=== PATIENT | male | born 1960 | race Caucasian/White ===

== ENCOUNTER 2017-11-09 10:14 | Inpatient (IN) ==
[2017-11-09] MEDS ORDERED: Albuterol 2.5 MG/3 ML NEBULIZER IH ONE (10:49)
[2017-11-09] MEDS ORDERED: Ipratropium/Albuterol Neb 3 ML IH ONE (10:49)
--- NOTE | 2017-11-09 11:09 | Emergency Department Note ---
Disposition Clinical Impression: Community acquired pneumonia Qualifiers: Laterality: left Lung location: lower lobe of lung Qualified Code(s): J18.1 - Lobar pneumonia, unspecified organism Disposition: Admitted As Inpatient Condition: Fair Time of Disposition: 13:21 Chest Pain HPI - General Chief Complaint: ED Chest Pain Stated Complaint: chest pain Time Seen by Provider: 11/09/17 10:28 Source: patient Mode of arrival: ambulatory Limitations: no limitations Vital Signs Reviewed: Yes Nursing Notes Reviewed: Yes - History of Present Illness HPI Narrative: 57-year-old male presented to the ED complaining of chest pain and shortness of breath. He states the chest pain has been going on for about a week. He does have history of having a heart catheter but there were no findings he also has a defibrillator that he said he felt went on for about 3 weeks ago multiple times. Has not gone off since. He says the chest pains about a 5 out of 10 pressure left-sided his chest nonradiating. He has not taken anything for the pain. Says it is constant and does get worse to 8/10 when he is just sitting there resting. He says he is more short of breath. He says he has had no fevers but does wake up with night sweats which is normal for him he is not complaining of any weight loss. He has not been on a long car rides, history of blood clots, recent surgeries. Patient states no nausea or vomiting no pain in the jaw or arms. He is having no abdominal pain, change in bowel movements pain with urination, headache, blurry vision, back pain, painting another legs or generalized weakness. Patient was has no complaints. Severity scale (1-10): 8 - Related Data Home Medications Medication Instructions Recorded Confirmed LevETIRAcetam [Keppra] 1,000 mg PO Q12H 12/01/15 11/09/17 Multivitamin [Flintstones] 1 tab PO DAILY 12/01/15 11/09/17 Potassium Chloride 20 meq PO DAILY 12/01/15 11/09/17 Albuterol Sulfate [Proair Hfa] 2 puff IH Q4H PRN 10/04/16 11/09/17 Budesonide/Formoterol 160/4.5 2 puff IH BIDR 10/04/16 11/09/17 [Symbicort 160/4.5] Metoprolol Succinate 100 mg PO DAILY 02/26/17 11/09/17 Citalopram Hydrobromide 10 mg PO DAILY 08/11/17 11/09/17 [Citalopram HBr] Tamsulosin [Flomax] 0.4 mg PO DAILY 08/11/17 11/09/17 Previous Rx's Medication Instructions Recorded Cefdinir [Omnicef] 300 mg PO BID 10 Days #20 capsule 11/01/17 Lisinopril [Zestril] 20 mg PO DAILY #30 tablet 11/01/17 Allergies Allergy/AdvReac Type Severity Reaction Status Date / Time codeine Allergy Rash Verified 11/09/17 10:25 morphine Allergy Rash Verified 11/09/17 10:25 Review of Systems: 10 point review of systems done and negative unless otherwise stated in history of present illness. All systems ED: reviewed and negative except as stated. Review of Systems: As Per HPI Chest Pain PMH - Past Medical History Medical history: Reports: CHF, COPD, hypertension, other Surgical history: Reports: herniorrhaphy, pacemaker/AICD, other Psychiatric history: Reports: depression - Social History Smoking Status: Former smoker Alcohol use: Reports: occasionally Drug use: Reports: marijuana Physical Exam - General Limitations: no limitations General appearance: alert, in no apparent distress - Head Head exam: atraumatic, normocephalic, normal inspection - Eye Eye exam: Present: normal appearance, PERRL, EOMI - ENT ENT exam: normal exam, normal oropharynx, mucous membranes moist - Neck Neck exam: Present: normal inspection, full ROM, trachea midline - Chest Chest inspection: Present: normal inspection, symmetric chest wall rise, tenderness (Patient is tender on the left side of his chest when you palpate near the axilla.) - Expanded Respiratory Exam Location: rhonchi: Right, Upper, Lower - Cardiovascular Cardiovascular exam: Present: regular rate, normal rhythm, normal heart sounds - Abdominal Exam Abdominal exam: Present: soft, Non-Tender, normal bowel sounds. Absent: tenderness, distention, guarding, rebound, rigidity - Extremities Exam Extremities exam: Present: normal inspection, full ROM. Absent: tenderness, pedal edema - Expanded Lower Extremity Exam Neurovascular/Tendon exam: Present: normal capillary refill. Absent: pulse deficit, motor deficit, sensory deficit, tendon deficit - Back Exam Back exam: Present: normal inspection, full ROM. Absent: tenderness, CVA tenderness (R), CVA tenderness (L) - Neurological Exam Neurological exam: Present: alert, oriented X3 - Skin Skin exam: Present: warm, dry, intact, normal color Course Course Narrative: 57-year-old male presents the ED with chest pain and shortness of breath. With the chest pain workup including CBC, BMP, troponin as well as chest x-ray. We will give patient a DuoNeb still with his shortness of breath. He was hypoxic while in the room at 90% while sitting there talking. Patient does not think this is normal for him. We will place him on oxygen. We will reassess patient after breathing treatments see how he feels and see if his lung sounds are better. Unknown disposition at this time. Vital Signs Temperature 98.4 F 11/09/17 10:22 Pulse Rate 86 11/09/17 10:22 Respiratory Rate 16 11/09/17 10:22 Blood Pressure 151/101 11/09/17 10:22 O2 Sat by Pulse Oximetry 93 11/09/17 10:22 Temperature 98.0 F 11/09/17 13:34 Pulse Rate 76 11/09/17 13:34 Respiratory Rate 18 11/09/17 16:36 Blood Pressure 148/100 11/09/17 13:34 O2 Sat by Pulse Oximetry 96 11/09/17 16:36 Oxygen Delivery Oxygen Delivery Room Air Chest Pain - [facility] Narrative Medical decision making narrative: 57-year-old male presents the ED complaining of chest pain and shortness of breath. Patient presented here he was hypoxic at 88% on room air. Did place him on 2 L of oxygen remained at 94%. The breathing treatment did help him breathe a lot better. Get chest x-ray which showed a left-sided pleural effusion. Labs did show leukocytosis with mild left shift. His troponin was normal EKG was normal. At this time he is most likely diagnosed with acquired pneumonia. We started him on azithromycin since third ceftriaxone also ordered blood cultures. Patient is admitted to the hospitalist service. I spoke with Dr. Lockett who agreed to admit the patient to their service. Patient is admitted in stable condition at this time. Chest X-Ray 11/09/17 10:33 IMPRESSION: 1. Left pleural effusion with underlying left basilar airspace opacity potentially representing atelectasis, pneumonia, and/or aspiration. 2. Pulmonary vascular congestion. D/ / Drew Payan MD / Drew Payan MD Interpreting Provider: Drew Payan MD - Medical Records Medical records reviewed: Yes I reviewed the patient's medical records. - Lab Data Lab results reviewed: Yes I reviewed the patient's lab results. Result diagrams: 11/09/17 10:55 11/09/17 10:55 Lab Results 11/09/17 11/09/17 11/09/17 Range/Units 10:55 10:55 10:55 WBC 13.5 H (4.3-11.1) K/mcL RBC 4.27 (4.19-5.50) M/mcL Hgb 14.2 (12.9-16.9) g/dL Hct 42.1 (37.5-50.1) % MCV 98.6 (83.0-100.0) fL MCH 33.3 (28.0-33.3) pg MCHC 33.7 (31.6-35.5) g/dL RDW 12.8 (11.5-14.5) % Plt Count 231 (140-400) K/mcL MPV 10.2 (9.4-12.4) fL Immature Gran % 0.3 (0-4) % Seg Neutrophils % 78.3 % Lymphocytes % 11.2 % Monocytes % 6.1 % Eosinophils % 3.4 % Basophils % 0.7 % Neutrophils # 10.6 H (1.6-8.9) K/mcL Lymphocytes # 1.5 (0.6-4.6) K/mcL Monocytes # 0.8 (0.0-1.3) K/mcL Eosinophils # 0.5 (0.0-0.6) K/mcL Basophils # 0.1 (0.0-0.2) K/mcL PT 10.8 (9.4-12.1) Seconds INR 1.0 APTT 27.8 (26.0-36.0) Seconds Sodium 140 (136-145) mEq/L Potassium 3.6 (3.5-4.5) mEq/L Chloride 103 (98-109) mEq/L Carbon Dioxide 29 (19-29) mEq/L BUN 9 (8-26) mg/dL Creatinine 0.85 (0.72-1.25) mg/dL Est GFR ( Amer) > 60 (> 60) Est GFR (Non-Af Amer) > 60 (> 60) BUN/Creatinine Ratio 11 (6-26) Glucose 96 (70-99) mg/dL Calculated Osmolality 289 (280-300) Lactic Acid (0.5-2.2) mmol/L Calcium 8.7 (8.6-10.8) mg/dL Troponin I (0-0.03) ng/mL 11/09/17 11/09/17 Range/Units 10:55 12:17 WBC (4.3-11.1) K/mcL RBC (4.19-5.50) M/mcL Hgb (12.9-16.9) g/dL Hct (37.5-50.1) % MCV (83.0-100.0) fL MCH (28.0-33.3) pg MCHC (31.6-35.5) g/dL RDW (11.5-14.5) % Plt Count (140-400) K/mcL MPV (9.4-12.4) fL Immature Gran % (0-4) % Seg Neutrophils % % Lymphocytes % % Monocytes % % Eosinophils % % Basophils % % Neutrophils # (1.6-8.9) K/mcL Lymphocytes # (0.6-4.6) K/mcL Monocytes # (0.0-1.3) K/mcL Eosinophils # (0.0-0.6) K/mcL Basophils # (0.0-0.2) K/mcL PT (9.4-12.1) Seconds INR APTT (26.0-36.0) Seconds Sodium (136-145) mEq/L Potassium (3.5-4.5) mEq/L Chloride (98-109) mEq/L Carbon Dioxide (19-29) mEq/L BUN (8-26) mg/dL Creatinine (0.72-1.25) mg/dL Est GFR ( Amer) (> 60) Est GFR (Non-Af Amer) (> 60) BUN/Creatinine Ratio (6-26) Glucose (70-99) mg/dL Calculated Osmolality (280-300) Lactic Acid 0.8 (0.5-2.2) mmol/L Calcium (8.6-10.8) mg/dL Troponin I 0.01 (0-0.03) ng/mL - Radiology Data Radiology results reviewed: Yes I reviewed the patient's radiology results. - EKG Data EKG attestation: Yes I reviewed and interpreted this EKG. EKG results narrative: EKG done at 1032 review by myself and attending shows normal sinus rhythm at a rate of 84, SD interval 143, QRS 94, QTC 416 with a normal axis. No signs of ST elevation, or ST changes, no signs of T-wave out of maladies, there is sign of left ventricular hypertrophy but no signs of strain, no signs of heart block , no signs of WPW/Brugada syndrome. This EKG is unchanged on old EKG done . Heart Score - Score History: Slightly Suspicious EKG: Normal Age: 45-65 Risk Factors: 1-2 risk factors Troponin: Less than normal limit HEART Score Total: 2 Attestation Statement - Attestation Attestation: I, Markus Perera, examined this patient and my medical decision-making was reviewed with the MAC DEVELOPER/PA/Advanced Practice Nurse/Resident Physician. I agree with the documented findings, disposition and treatment plan as described except to the extent set forth below. 57-year-old male presents emergency Department with concerns of increasing dyspnea on exertion and left-sided chest pain. Patient states symptoms have been worsening over the past week, are not associated with diaphoresis or palpitations, nausea, vomiting, diarrhea or abdominal pain. Chest x-ray shows a possible left sided pleural effusion versus pneumonia. Patient has mildly elevated white blood cell count. Patient states he has had subjective fevers over the past few days. Initial EKG showed normal sinus rhythm with a rate of 84. Patient satting 90% on room air in the emergency department. Patient will be started Ankney required antibiotics and admitted to the hospital for further care and evaluation of required pneumonia versus COPD exacerbation versus acute bronchitis
[2017-11-09 11:10] LABS: Basophils # 0.1 K/mcL (0.0-0.2); Basophils % 0.7 %; Eosinophils # 0.5 K/mcL (0.0-0.6); Eosinophils % 3.4 %; Hematocrit 42.1 % (37.5-50.1); Hemoglobin 14.2 g/dL (12.9-16.9); Immature Granulocytes % 0.3 % (0-4); Lymphocytes # 1.5 K/mcL (0.6-4.6); Lymphocytes % 11.2 %; Mean Corpuscular HGB Conc 33.7 g/dL (31.6-35.5); Mean Corpuscular Hemoglobin 33.3 pg (28.0-33.3); Mean Corpuscular Volume 98.6 fL (83.0-100.0); Mean Platelet Volume 10.2 fL (9.4-12.4); Monocytes # 0.8 K/mcL (0.0-1.3); Monocytes % 6.1 %; Neutrophils # 10.6 K/mcL (1.6-8.9); Platelet Count 231 K/mcL (140-400); Red Blood Count 4.27 M/mcL (4.19-5.50); Red Cell Distribution Width 12.8 % (11.5-14.5); Segmented Neutrophils % 78.3 %
[2017-11-09 11:15] LABS: Prothrombin Time 10.8 Seconds (9.4-12.1)
[2017-11-09 11:18] LABS: Activated Partial Thrombo Time 27.8 Seconds (26.0-36.0)
[2017-11-09 11:24] LABS: BUN/Creatinine Ratio 11 (6-26); Blood Urea Nitrogen 9 mg/dL (8-26); Calcium 8.7 mg/dL (8.6-10.8); Carbon Dioxide 29 mEq/L (19-29); Chloride 103 mEq/L (98-109); Glucose 96 mg/dL (70-99); Osmolality,Calculated 289 (280-300); Potassium 3.6 mEq/L (3.5-4.5); Sodium 140 mEq/L (136-145); eGFR For African Americans > 60 (> 60); eGFR For Non-African Americans > 60 (> 60)
[2017-11-09] MEDS ORDERED: cefTRIAXone 1,000 MG in Water for inj. (sterile) 10 ML IVP ONE (11:52)
[2017-11-09] MEDS ORDERED: Azithromycin 500 MG in D5% in Water 250 ML IVPB ONE (11:52)
[2017-11-09] MEDS ORDERED: Naloxone 0.4 MG/ML INJ IVP PRN (14:04)
[2017-11-09] MEDS ORDERED: Acetaminophen 325 MG TABLET PO PRN (14:04)
[2017-11-09] MEDS ORDERED: Albuterol 2.5 MG/3 ML NEBULIZER IH PRN (14:08)
--- NOTE | 2017-11-09 14:11 | Internal Med History&Physical ---
<Silvia Jimenez - Last Filed: 11/09/17 14:11> Date of Encounter: 11/09/17 Time of Encounter: 14:11 Internal Medicine - H&P: HPI Chief complaint: CP Admitted From: Emergency Dept Plans for Post Hospital Care: Home History of present illness: Mr. Ward is a 57 year old male HPI Narrative: 57-year-old male presented to the ED complaining of chest pain and shortness of breath. He states the chest pain has been going on for about a week. He does have history of having a heart catheter but there were no findings he also has a defibrillator that he said he felt went on for about 3 weeks ago multiple times. Has not gone off since. He says the chest pains about a 5 out of 10 pressure left-sided his chest nonradiating. He has not taken anything for the pain. Says it is constant and does get worse to 8/10 when he is just sitting there resting. He says he is more short of breath. He says he has had no fevers but does wake up with night sweats which is normal for him he is not complaining of any weight loss. He has not been on a long car rides, history of blood clots, recent surgeries. Patient states no nausea or vomiting no pain in the jaw or arms. He is having no abdominal pain, change in bowel movements pain with urination, headache, blurry vision, back pain, painting another legs or generalized weakness. Patient was has no complaints. Severity scale (1-10): 8 Past Med Surg Social Fam HX - Past Medical History Medical history: CHF, COPD, hypertension, other Psychiatric history: depression - Past Surgical History Surgical History: herniorrhaphy, pacemaker/AICD, other - Social History Smoking Status: Former smoker Smokeless Tobacco Status: No Alcohol use: occasionally Drug use: marijuana Internal Medicine - H&P: Meds LevETIRAcetam [Keppra] 1,000 mg PO Q12H 12/01/15 [History] Multivitamin [Flintstones] 1 tab PO DAILY 12/01/15 [History] Potassium Chloride 20 meq PO DAILY 12/01/15 [History] Albuterol Sulfate [Proair Hfa] 2 puff IH Q4H PRN 10/04/16 [History] Budesonide/Formoterol 160/4.5 [Symbicort 160/4.5] 2 puff IH BIDR 10/04/16 [ History] Metoprolol Succinate 100 mg PO DAILY 02/26/17 [History] Citalopram Hydrobromide [Citalopram HBr] 10 mg PO DAILY 08/11/17 [History] Tamsulosin [Flomax] 0.4 mg PO DAILY 08/11/17 [History] Cefdinir [Omnicef] 300 mg PO BID 10 Days #20 capsule 11/01/17 [Rx] Lisinopril [Zestril] 20 mg PO DAILY #30 tablet 11/01/17 [Rx] 3 Allergy/AdvReac Type Severity Reaction Status Date / Time codeine Allergy Rash Verified 11/09/17 10:25 morphine Allergy Rash Verified 11/09/17 10:25 All Systems PM: A 10-system review of systems was performed and is negative for pertinent findings except as documented above in the HPI. - Constitutional Vitals: Temp Pulse Resp BP Pulse Ox 98.0 F 76 16 148/100 94 11/09/17 13:34 11/09/17 13:34 11/09/17 13:34 11/09/17 13:34 11/09/17 13:34 Internal Med - H&P Results - Labs CBC & Chem 7: 11/09/17 10:55 11/09/17 10:55 <Emeka Stovall - Last Filed: 11/09/17 15:28> Date of Encounter: 11/09/17 Internal Medicine - H&P: HPI Chief complaint: Chest pain Admitted From: Emergency Dept Plans for Post Hospital Care: Home History of present illness: Mr. Ward is a 57 year old male All Systems PM: A 10-system review of systems was performed and is negative for pertinent findings except as documented above in the HPI. - Constitutional Vitals: Temp Pulse Resp BP Pulse Ox 98.0 F 76 16 148/100 94 11/09/17 13:34 11/09/17 13:34 11/09/17 13:34 11/09/17 13:34 11/09/17 13:34 Internal Med - H&P Results - Labs CBC & Chem 7: 11/09/17 10:55 11/09/17 10:55
--- NOTE | 2017-11-09 15:33 | Internal Med History&Physical ---
Date of Encounter: 11/09/17 Time of Encounter: 15:29 Assessment and Plan (1) Pleural effusion, left Current visit: Yes Status: Acute Left pleural effusion secondary to CHF exacerbation and also possibly parapneumonic effusion. We will treat CHF with IV Lasix. Treat pneumonia with antibiotics. (2) Alcohol abuse Current visit: Yes Status: Acute CIWA protocol. Alcohol withdrawal precautions. (3) COPD (chronic obstructive pulmonary disease) Current visit: Yes Status: Acute No evidence of exacerbation. There is mild wheezing. Good air movement. He just completed a course of steroids. Continue Symbicort and add inhaled bronchodilators. No need for systemic steroids right now. Qualifiers: COPD type: emphysema Emphysema type: centrilobular Qualified Code(s): J43.2 - Centrilobular emphysema (4) Acute on chronic combined systolic and diastolic congestive heart failure Current visit: Yes Status: Acute Chest x-ray shows vascular congestion and a left-sided pleural effusion consistent with CHF exacerbation. Ejection fraction and 2016 was 20%. We will treat him with IV Lasix. Fluid restriction. Strict I's and O's. Daily weights. Repeat echocardiogram. (5) Essential hypertension Current visit: Yes Status: Acute Continue on lisinopril and metoprolol. (6) DVT prophylaxis Current visit: Yes Status: Acute Subcutaneous Lovenox. (7) Community acquired pneumonia Current visit: Yes Status: Acute Patient completed a course of Omnicef. He was given ceftriaxone and azithromycin in the main emergency department. Given that his symptoms persisted in spite of treatment with a cephalosporin I will switch treatment to Zosyn and Levaquin. We will obtain a CT of the chest to evaluate the underlying infiltrate present on the chest x-ray and evaluate for possible indication of aspiration such as endobronchial debris. Qualifiers: Laterality: left Lung location: lower lobe of lung Qualified Code(s): J18.1 - Lobar pneumonia, unspecified organism (8) NICM (nonischemic cardiomyopathy) Current visit: No Status: Acute (9) Chest pain Current visit: Yes Status: Acute Likely secondary to left lower lobe pneumonia and pleural effusion. Could also be secondary to PE. I we will obtain a CT angiogram of the chest ruled out PE. Qualifiers: Chest pain type: chest pain on breathing Qualified Code(s): R07.1 - Chest pain on breathing; R07.81 - Pleurodynia Internal Medicine - H&P: HPI Chief complaint: Chest pain Admitted From: Emergency Dept Plans for Post Hospital Care: Home History of present illness: Mr. Ward is a 57 year old male with past medical history significant for nonischemic cardiomyopathy, systolic heart failure with ejection fraction of 20% , status post AICD placement, COPD, seizure disorder and osteoarthritis who presents to the hospital for evaluation of chest pain. He started having chest pain and shortness of breath 8 days ago. He presented to urgent care and received treatment with antibiotic and steroids. His shortness of breath and productive cough have improved however his pain has been getting worse. He describes left-sided chest pain pressure-like 8/10 in intensity worse with cough and deep breathing. Denies associated nausea or lightheadedness and diaphoresis. A chest x-ray done in the emergency department revealed a left-sided pleural effusion and possible underlying infiltrate. He was given ceftriaxone and azithromycin. Review of systems positive for chest pain as above, chronic back pain, chronic depression and anxiety, history of seizures. The remainder of a 10 point review of systems was negative. Surgical history: Back surgery. Social history: Former smoker, quit 3 years ago, drinks 2-6 beers daily, reports withdrawal symptoms when he tries to refrain from drinking alcohol. Smokes marijuana but denies intravenous drug use. Family history: Patient's mother suffered with diabetes, heart disease and breast cancer. Past Med Surg Social Fam HX - Past Medical History Medical history: CHF, COPD, hypertension, other Psychiatric history: depression - Past Surgical History Surgical History: herniorrhaphy, pacemaker/AICD, other - Social History Smoking Status: Former smoker Smokeless Tobacco Status: No Alcohol use: occasionally Drug use: marijuana Internal Medicine - H&P: Meds LevETIRAcetam [Keppra] 1,000 mg PO Q12H 12/01/15 [History] Multivitamin [Flintstones] 1 tab PO DAILY 12/01/15 [History] Potassium Chloride 20 meq PO DAILY 12/01/15 [History] Albuterol Sulfate [Proair Hfa] 2 puff IH Q4H PRN 10/04/16 [History] Budesonide/Formoterol 160/4.5 [Symbicort 160/4.5] 2 puff IH BIDR 10/04/16 [ History] Metoprolol Succinate 100 mg PO DAILY 02/26/17 [History] Citalopram Hydrobromide [Citalopram HBr] 10 mg PO DAILY 08/11/17 [History] Tamsulosin [Flomax] 0.4 mg PO DAILY 08/11/17 [History] Cefdinir [Omnicef] 300 mg PO BID 10 Days #20 capsule 11/01/17 [Rx] Lisinopril [Zestril] 20 mg PO DAILY #30 tablet 11/01/17 [Rx] 3 Allergy/AdvReac Type Severity Reaction Status Date / Time codeine Allergy Rash Verified 11/09/17 10:25 morphine Allergy Rash Verified 11/09/17 10:25 All Systems PM: A 10-system review of systems was performed and is negative for pertinent findings except as documented above in the HPI. - Constitutional Vitals: Temp Pulse Resp BP Pulse Ox 98.0 F 76 16 148/100 94 11/09/17 13:34 11/09/17 13:34 11/09/17 13:34 11/09/17 13:34 11/09/17 13:34 General appearance: Present: A&O X 3, no acute distress - Eye Eye exam: Present: PERRL, conjuntiva pink, sclera anicteric Pupils: Present: PERRL - Neck Neck exam general surgery: Present: supple, trachea midline. Absent: lymphadenopathy - Respiratory Respiratory exam: Present: decreased breath sounds (Decreased breath sounds at the left base), CTAB, wheezes (Fine expiratory wheezes). Absent: accessory muscle use, rales, rhonchi - Cardiovascular Cardiovascular exam: Present: RRR, +S1, +S2. Absent: diastolic murmur, gallop, rubs, systolic murmur - GI/Abdominal GI/Abdominal exam: Present: normal bowel sounds, soft, no peritoneal signs. Absent: distended, tenderness - Extremities Exam Extremities exam: Present: warm, radial pulses palpable and symmetrical. Absent : calf tenderness, cyanotic, pedal edema - Neurological Exam Neurological exam: Present: CN II-XII intact, oriented X3, no focal deficits. Absent: pronater drift, facial droop, speech deficit - Skin Skin exam: Present: dry, intact Internal Med - H&P Results - Labs CBC & Chem 7: 11/09/17 10:55 11/09/17 10:55 - EKG Data -: EKG Interpreted by Myself EKG shows normal: sinus rhythm, axis, intervals, ST-T waves Rate: normal - Impressions Echocardiogram from June 2016 reviewed in the chart shows LV systolic dysfunction with ejection fraction of 20-25% and mild LV diastolic dysfunction.
[2017-11-09] MEDS: Ipratropium/Albuterol Neb 3 ML IH SCH ×4 (15:41→22:27)
[2017-11-09] MEDS ORDERED: *HR* LORazepam 2 MG/ML VIAL IVP PRN (15:51)
[2017-11-09] MEDS: levETIRAcetam 250 MG TABLET PO SCH (16:59)
[2017-11-09] MEDS: Piperacillin/Tazobactam 3.375 GM/200 ML BAG IVPB SCH (16:59)
[2017-11-09] MEDS: levoFLOXacin 750 MG TABLET PO SCH (17:00)
[2017-11-09] MEDS: Furosemide 20 MG/2 ML VIAL IVP SCH (17:00)
[2017-11-09] MEDS: Metoprolol XL (24 HR) Succ 50 MG TAB.ER.24H PO SCH (17:00)
[2017-11-09] MEDS ORDERED: Thiamine (B-1) 100 MG, Folic Acid 1 MG, MVI, adult with vitamin K 10 ML in 0.9 % Sodi... IVPB SCH (18:00)
[2017-11-09] MEDS: Budesonide/Formoterol 160/4.5 MDI IH SCH (22:28)
[2017-11-10] MEDS: Piperacillin/Tazobactam 3.375 GM/200 ML BAG IVPB SCH ×3 (00:29→15:29)
[2017-11-10] MEDS: Ipratropium/Albuterol Neb 3 ML IH SCH ×8 (03:31→22:04)
[2017-11-10] MEDS: *HR* Enoxaparin 40 MG/0.4 ML SYRINGE SQ SCH (05:08)
[2017-11-10] MEDS: levETIRAcetam 250 MG TABLET PO SCH ×2 (05:08→15:29)
[2017-11-10 06:19] LABS: Basophils # 0.1 K/mcL (0.0-0.2); Basophils % 0.9 %; Eosinophils # 0.5 K/mcL (0.0-0.6); Eosinophils % 3.9 %; Hematocrit 41.4 % (37.5-50.1); Hemoglobin 13.9 g/dL (12.9-16.9); Immature Granulocytes % 0.3 % (0-4); Lymphocytes # 1.3 K/mcL (0.6-4.6); Lymphocytes % 10.8 %; Mean Corpuscular HGB Conc 33.6 g/dL (31.6-35.5); Mean Corpuscular Hemoglobin 33.2 pg (28.0-33.3); Mean Corpuscular Volume 98.8 fL (83.0-100.0); Mean Platelet Volume 10.4 fL (9.4-12.4); Monocytes # 0.9 K/mcL (0.0-1.3); Monocytes % 7.3 %; Neutrophils # 9.6 K/mcL (1.6-8.9); Platelet Count 213 K/mcL (140-400); Red Blood Count 4.19 M/mcL (4.19-5.50); Segmented Neutrophils % 76.8 %
[2017-11-10 06:25] LABS: BUN/Creatinine Ratio 10 (6-26); Blood Urea Nitrogen 8 mg/dL (8-26); Calcium 8.4 mg/dL (8.6-10.8); Carbon Dioxide 30 mEq/L (19-29); Chloride 100 mEq/L (98-109); Chol/HDL Ratio 3.5 (0-4.9); Cholesterol 139 mg/dL (< 200); Glucose 112 mg/dL (70-99); HDL Cholesterol 40 mg/dL (40-59); LDL Cholesterol,Calculated 79 mg/dL (0-99); Magnesium 1.5 mg/dL (1.6-2.6); Osmolality,Calculated 285 (280-300); Potassium 3.4 mEq/L (3.5-4.5); Sodium 138 mEq/L (136-145); Triglycerides 102 mg/dL (< 150); eGFR For African Americans > 60 (> 60); eGFR For Non-African Americans > 60 (> 60)
[2017-11-10] MEDS: cefTRIAXone 1,000 MG in Water for inj. (sterile) 10 ML IVP SCH ×2 (08:08→08:13)
[2017-11-10] MEDS: levoFLOXacin 750 MG TABLET PO SCH (08:09)
[2017-11-10] MEDS: Metoprolol XL (24 HR) Succ 50 MG TAB.ER.24H PO SCH (08:09)
[2017-11-10] MEDS: Lisinopril 20 MG TABLET PO SCH (08:10)
[2017-11-10] MEDS: Furosemide 20 MG/2 ML VIAL IVP SCH ×2 (08:10→17:22)
[2017-11-10] MEDS ORDERED: Azithromycin 500 MG in D5% in Water 250 ML IVPB SCH ×2 (09:00→12:00)
[2017-11-10] MEDS: Budesonide/Formoterol 160/4.5 MDI IH SCH ×2 (10:18→22:03)
[2017-11-10] MEDS: Beer can PO SCH ×2 (12:31→17:22)
--- NOTE | 2017-11-10 13:46 | Internal Med Progress Note ---
Date of Encounter: 11/10/17 Time of Encounter: 10:00 - Assessment and plan (1) Pleural effusion, left Current Visit: Yes Status: Acute Assessment and plan: Likely secondary to CHF versus pleurisy versus parapneumonic effusion. Continue with Lasix. Patient clinically improving therefore a diagnostic thoracentesis likely not useful at this point. (2) Alcohol abuse Current Visit: Yes Status: Acute Assessment and plan: CIWA protocol. One beer with meals twice a day when necessary. (3) COPD (chronic obstructive pulmonary disease) Current Visit: Yes Status: Acute Assessment and plan: Inhaled bronchodilators. No evidence of exacerbation. Qualifiers: COPD type: emphysema Emphysema type: centrilobular Qualified Code(s): J43.2 - Centrilobular emphysema (4) Acute on chronic combined systolic and diastolic congestive heart failure Current Visit: Yes Status: Acute Assessment and plan: IV Lasix. Daily weights. Strict I's and O's. Fluid restriction. Repeat echocardiogram. (5) Essential hypertension Current Visit: Yes Status: Acute (6) DVT prophylaxis Current Visit: Yes Status: Acute (7) Community acquired pneumonia Current Visit: Yes Status: Acute Qualifiers: Laterality: left Lung location: lower lobe of lung Qualified Code(s): J18.1 - Lobar pneumonia, unspecified organism (8) NICM (nonischemic cardiomyopathy) Current Visit: No Status: Acute (9) Chest pain Current Visit: Yes Status: Acute Qualifiers: Chest pain type: chest pain on breathing Qualified Code(s): R07.1 - Chest pain on breathing; R07.81 - Pleurodynia - Subjective Interval history: Patient reports improvement in his left-sided chest pain over the last 24 hours which she describes as dull, pressure-like, mild, worse with inspiration and cough. - Constitutional Vitals: Temp Pulse Resp BP Pulse Ox 98.1 F 92 18 145/100 92 11/10/17 11:21 11/10/17 11:21 11/10/17 11:21 11/10/17 11:21 11/10/17 11:21 General appearance: Present: A&O X 3, no acute distress - Respiratory Respiratory exam: Present: decreased breath sounds (Decreased breath sounds at the right base and fine crackles), CTAB. Absent: accessory muscle use, rales, rhonchi, wheezes - Cardiovascular Cardiovascular exam: Present: RRR, +S1, +S2. Absent: diastolic murmur, gallop, rubs, systolic murmur - GI/Abdominal GI/Abdominal exam: Present: normal bowel sounds, soft, no peritoneal signs. Absent: distended, tenderness - Extremities Exam Extremities exam: Present: warm, radial pulses palpable and symmetrical. Absent : calf tenderness, cyanotic, pedal edema - Skin Skin exam: Present: dry, intact Internal Medicine: Result - Labs CBC & Chem 7: 11/10/17 05:42 11/10/17 05:42 Labs: Short CBC 11/10/17 Range/Units 05:42 WBC 12.5 H (4.3-11.1) K/mcL Hgb 13.9 (12.9-16.9) g/dL Hct 41.4 (37.5-50.1) % Plt Count 213 (140-400) K/mcL Neutrophils # 9.6 H (1.6-8.9) K/mcL BMP 11/10/17 05:42 Sodium 138 Potassium 3.4 L Chloride 100 Carbon Dioxide 30 H BUN 8 Creatinine 0.82 Glucose 112 H Calcium 8.4 L Cardiac Enzymes 11/09/17 11/09/17 Range/Units 16:32 22:23 Troponin I 0.00 0.00 (0-0.03) ng/mL - ABG Interpretation ABG results: PT/INR, D-dimer PT 10.8 Seconds (9.4-12.1) 11/09/17 10:55 - Impressions Impressions Chest CTA 11/09/17 15:27 IMPRESSION: 1. No pulmonary embolism. 2. Moderate left-sided pleural effusion with compressive atelectasis in the left lower lobe. 3. Areas of fibrosis in the lingula and right lower lobe are additionally identified. D/ / Pritesh Pete / Pritesh Pete Interpreting Provider: Pritesh Pete Consult Discharge Plan - Plan Referrals: NONE,PCP [Primary Care Provider] -
[2017-11-10] MEDS: Potassium Chloride Elixir 20 MEQ/15 ML UDC PO SCH ×2 (14:14→20:06)
[2017-11-10] MEDS ORDERED: Beer can PO SCH (17:00)
[2017-11-10] MEDS ORDERED: Thiamine (B-1) 100 MG, Folic Acid 1 MG, MVI, adult with vitamin K 10 ML in 0.9 % Sodi... IVPB SCH (20:00)
[2017-11-11] MEDS: Piperacillin/Tazobactam 3.375 GM/200 ML BAG IVPB SCH ×3 (01:51→11:02)
[2017-11-11] MEDS: levETIRAcetam 250 MG TABLET PO SCH (03:39)
[2017-11-11] MEDS: Ipratropium/Albuterol Neb 3 ML IH SCH ×3 (03:40→10:01)
[2017-11-11] MEDS: *HR* Enoxaparin 40 MG/0.4 ML SYRINGE SQ SCH (05:59)
[2017-11-11 06:05] LABS: Basophils # 0.1 K/mcL (0.0-0.2); Basophils % 0.7 %; Eosinophils # 0.4 K/mcL (0.0-0.6); Eosinophils % 3.4 %; Hematocrit 39.5 % (37.5-50.1); Hemoglobin 13.2 g/dL (12.9-16.9); Immature Granulocytes % 0.2 % (0-4); Lymphocytes # 1.3 K/mcL (0.6-4.6); Lymphocytes % 12.2 %; Mean Corpuscular HGB Conc 33.4 g/dL (31.6-35.5); Mean Corpuscular Volume 98.8 fL (83.0-100.0); Mean Platelet Volume 10.8 fL (9.4-12.4); Monocytes % 9.6 %; Neutrophils # 7.9 K/mcL (1.6-8.9); Platelet Count 199 K/mcL (140-400); Segmented Neutrophils % 73.9 %
[2017-11-11 06:16] LABS: BUN/Creatinine Ratio 13 (6-26); Blood Urea Nitrogen 11 mg/dL (8-26); Calcium 8.1 mg/dL (8.6-10.8); Carbon Dioxide 28 mEq/L (19-29); Chloride 100 mEq/L (98-109); Glucose 135 mg/dL (70-99); Osmolality,Calculated 283 (280-300); Potassium 3.4 mEq/L (3.5-4.5); Sodium 136 mEq/L (136-145); eGFR For African Americans > 60 (> 60); eGFR For Non-African Americans > 60 (> 60)
[2017-11-11] MEDS ORDERED: *HR* LORazepam 2 MG/ML VIAL IVP PRN (07:58)
[2017-11-11] MEDS: Potassium Chloride Elixir 20 MEQ/15 ML UDC PO SCH (08:05)
[2017-11-11] MEDS: Lisinopril 20 MG TABLET PO SCH (08:06)
[2017-11-11] MEDS: Metoprolol XL (24 HR) Succ 50 MG TAB.ER.24H PO SCH (08:06)
[2017-11-11] MEDS: Furosemide 20 MG/2 ML VIAL IVP SCH (08:07)
[2017-11-11] MEDS: levoFLOXacin 750 MG TABLET PO SCH (08:07)
[2017-11-11] MEDS: Beer can PO SCH ×2 (08:22→11:02)
[2017-11-11] MEDS: Budesonide/Formoterol 160/4.5 MDI IH SCH (10:01)
[2017-11-11 11:53] VITALS: BP 145/100
--- NOTE | 2017-11-11 11:56 | Discharge Summary ---
Date of Encounter: 11/11/17 Time of Encounter: 10:00 - Discharge Diagnosis (1) Pleural effusion, left Priority: Secondary Status: Acute (2) Alcohol abuse Priority: Secondary Status: Acute (3) COPD (chronic obstructive pulmonary disease) Priority: Secondary Status: Acute Qualifiers: COPD type: emphysema Emphysema type: centrilobular Qualified Code(s): J43.2 - Centrilobular emphysema (4) Acute on chronic combined systolic and diastolic congestive heart failure Priority: Primary Status: Acute (5) Essential hypertension Priority: Secondary Status: Acute (6) DVT prophylaxis Priority: Secondary Status: Acute (7) Community acquired pneumonia Priority: Secondary Status: Acute Qualifiers: Laterality: left Lung location: lower lobe of lung Qualified Code(s): J18.1 - Lobar pneumonia, unspecified organism (8) NICM (nonischemic cardiomyopathy) Priority: Secondary Status: Acute (9) Chest pain Priority: Secondary Status: Acute Qualifiers: Chest pain type: chest pain on breathing Qualified Code(s): R07.1 - Chest pain on breathing; R07.81 - Pleurodynia - Discharge Medications Prescriptions: Furosemide [Lasix] 20 mg PO DAILY #30 tablet Ipratropium/Albuterol Sulfate [Combivent Respimat Inhal [place]] 4 gm IH TID #1 aer.w.adap levoFLOXacin [Levaquin] 750 mg PO DAILY #4 tablet Home Medications: LevETIRAcetam [Keppra] 1,000 mg PO Q12H 12/01/15 [History] Multivitamin [Flintstones] 1 tab PO DAILY 12/01/15 [History] Potassium Chloride 20 meq PO DAILY 12/01/15 [History] Albuterol Sulfate [Proair Hfa] 2 puff IH Q4H PRN 10/04/16 [History] Budesonide/Formoterol 160/4.5 [Symbicort 160/4.5] 2 puff IH BIDR 10/04/16 [ History] Metoprolol Succinate 100 mg PO DAILY 02/26/17 [History] Citalopram Hydrobromide [Citalopram HBr] 10 mg PO DAILY 08/11/17 [History] Tamsulosin [Flomax] 0.4 mg PO DAILY 08/11/17 [History] Lisinopril [Zestril] 20 mg PO DAILY #30 tablet 11/01/17 [Rx] Furosemide [Lasix] 20 mg PO DAILY #30 tablet 11/11/17 [Rx] Ipratropium/Albuterol Sulfate [Combivent Respimat Inhal [place]] 4 gm IH TID #1 aer.w.adap 11/11/17 [Rx] levoFLOXacin [Levaquin] 750 mg PO DAILY #4 tablet 11/11/17 [Rx] Allergies/Adverse Reactions: 3 Allergy/AdvReac Type Severity Reaction Status Date / Time codeine Allergy Rash Verified 11/09/17 10:25 morphine Allergy Rash Verified 11/09/17 10:25 Procedures/tests Complete & Pending: Procedures Performed prior 72 hours Category Date Time Status CT angio chest [CT] Stat Cat Scan 11/09/17 15:27 Completed EV echocardiogram Routine Y 11/11/17 13:50 Completed Date of admission: 11/09/17 14:04 Primary care physician: PCP NONE Consults: 11/11/17 11:08 Consult to Warehouse And Receiving Supervisor [CONS] Routine Reason for SW Consult: lives in a camper with no running water - Patient Status Disposition: Home, Self-Care Condition: Fair Functional capacity at discharge: independent ambulation Overall status at discharge: patient is progressing back to baseline - Discharge Instructions Instructions: Furosemide (By mouth), Levofloxacin (By mouth) Follow Up With: Minor Damon DO [Resident] - 12/16/17 2:00 pm (Please follow up as schedule...) - Diet and Activity Activity: increase activity as tolerated Diet: low fat, low cholesterol Hospital course: Hospital presentation: Mr. Ward is a 57 year old male with past medical history significant for nonischemic cardiomyopathy, systolic heart failure with ejection fraction of 20% , status post AICD placement, COPD, seizure disorder and osteoarthritis who presents to the hospital for evaluation of chest pain. He started having chest pain and shortness of breath 8 days ago. He presented to urgent care and received treatment with antibiotic and steroids. His shortness of breath and productive cough have improved however his pain has been getting worse. He describes left-sided chest pain pressure-like 8/10 in intensity worse with cough and deep breathing. Hospital course: He was admitted and placed on telemetry. Serial troponins were negative. He was treated with Zosyn and Levaquin for suspected pneumonia. He was treated with Lasix for CHF exacerbation. His chest pain has improved. He was weaned off oxygen. His ambulatory oxygen saturation remained above 92 % on room air. He had a good response to diuretics. He had a repeat echocardiogram which showed ejection fraction of 50% which had improved significantly from previous echocardiogram. He will be transitioned to oral Lasix and switched to oral antibiotics and discharged home. I discussed the discharge plan with the patient and he expresses agreement with the plan. - Time Spent with Patient Total time spent providing and/or coordinating discharge services: Greater than 30 minutes - Constitutional Vitals: Temp Pulse Resp BP Pulse Ox 98.3 F 98 18 145/100 93 11/11/17 11:50 11/11/17 11:50 11/11/17 11:50 11/11/17 11:50 11/11/17 11:50 General appearance: Present: A&O X 3, no acute distress - Respiratory Respiratory exam: Present: CTAB. Absent: accessory muscle use, rales, rhonchi, wheezes - Cardiovascular Cardiovascular exam: Present: RRR, +S1, +S2. Absent: diastolic murmur, gallop, rubs, systolic murmur - GI/Abdominal GI/Abdominal exam: Present: normal bowel sounds, soft, no peritoneal signs. Absent: distended, tenderness
--- NOTE | 2017-11-11 14:44 | Electrocardiograph Report ---
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
--- NOTE | 2017-11-11 16:00 | Electrocardiograph Report ---
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
== END 2017-11-11 13:20 | disposition home or self-care (01) | DRG 291 ==
LOC: EMEROO 10:14 → 2ANU 10:14
PROVIDERS: ADMIT Hospitalist; ATTEND Internal Medicine

== ENCOUNTER 2021-03-31 10:37 | Inpatient (IN) ==
[2021-03-31] MEDS ORDERED: Naloxone 0.4 MG/ML INJ IVP PRN (13:26)
[2021-03-31] MEDS ORDERED: Ondansetron ODT 4 MG TAB.RAPDIS SL PRN (13:26)
[2021-03-31] MEDS: Piperacillin/Tazobactam 3.375 GM in 0.9 % Sodium Chloride Mini Bag 100 ML IVPB SCH ×2 (14:17→22:51)
[2021-03-31] MEDS: Furosemide 20 MG/2 ML VIAL IVP SCH ×2 (15:29→21:14)
[2021-03-31] MEDS ORDERED: levETIRAcetam 250 MG TABLET PO SCH (15:45)
[2021-03-31] MEDS: Ipratropium/Albuterol Neb 3 ML IH SCH ×3 (16:25→23:51)
[2021-03-31] MEDS: *HR* Heparin 5,000 UNIT/ML VIAL SQ SCH (16:31)
[2021-03-31] MEDS: MethylPREDNISolone 40 MG/ML VIAL IVP SCH (16:31)
[2021-03-31 17:33] LABS: Amphetamine Screen,Urine Positive ng/mL (Cutoff=1000); Barbiturate Screen,Urine Negative ng/mL (Cutoff=200); Benzodiazepines Screen,Urine Negative ng/mL (Cutoff=200); Cannabinoid Screen,Urine Positive ng/mL (Cutoff = 50); Cocaine Screen,Urine Negative ng/mL (Cutoff= 300); Opiate Screen,Urine Negative ng/mL (Cutoff=300); Phencyclidine Screen,Urine Negative ng/mL (Cutoff=25)
[2021-03-31] MEDS: Budesonide/Formoterol 160/4.5 1 PUFF INH IH SCH ×2 (20:27→20:29)
[2021-03-31] MEDS ORDERED: diazePAM 10 MG/2 ML SYRINGE IVP PRN ×3 (23:53)
[2021-04-01] MEDS: diazePAM 10 MG/2 ML SYRINGE IVP PRN ×6 (00:32→17:45)
[2021-04-01 00:54] LABS: Calcium 8.2 mg/dL (8.6-10.3); Magnesium 1.8 mg/dL (1.6-2.6); Phosphorous 4.9 mg/dL (2.7-4.5)
[2021-04-01 00:57] LABS: Troponin I 0.19 ng/mL (< 0.04)
[2021-04-01] MEDS: Ipratropium/Albuterol Neb 3 ML IH SCH ×6 (03:36→23:08)
[2021-04-01] MEDS ORDERED: *HR* LORazepam 2 MG/ML VIAL IVP ONE (03:52)
[2021-04-01] MEDS: *HR* LORazepam 2 MG/ML VIAL ONE ×3 (03:55→04:03)
[2021-04-01 04:56] LABS: ABG Base Excess 2 mEq/L (-2 to 3); ABG HCO3 33 mEq/L (21-27); ABG Oxygen Saturation 96 % (95-98); ABG PCO2 78 mmHg (35-45); ABG PH 7.23 pH Units (7.32-7.45); ABG PO2 104 mmHg (85-104); ABG TCO2 35 mEq/L (20-26)
[2021-04-01] MEDS: *HR* Heparin 5,000 UNIT/ML VIAL SQ SCH ×2 (05:01→16:20)
[2021-04-01] MEDS: MethylPREDNISolone 40 MG/ML VIAL IVP SCH ×2 (05:02→16:20)
[2021-04-01 05:19] LABS: Basophils % 0.2 %; Hematocrit 47.5 % (37.5-50.1); Hemoglobin 15.1 g/dL (12.9-16.9); Immature Granulocytes % 0.2 % (0-4); Lymphocytes # 0.5 K/mcL (0.6-4.6); Lymphocytes % 8.7 %; Mean Corpuscular HGB Conc 31.8 g/dL (31.6-35.5); Mean Corpuscular Hemoglobin 33.5 pg (28.0-33.3); Mean Corpuscular Volume 105.3 fL (83.0-100.0); Mean Platelet Volume 11.1 fL (9.4-12.4); Monocytes # 0.3 K/mcL (0.0-1.3); Monocytes % 4.8 %; Neutrophils # 4.8 K/mcL (1.6-8.9); Platelet Count 147 K/mcL (140-400); Red Blood Count 4.51 M/mcL (4.19-5.50); Red Cell Distribution Width 13.2 % (11.5-14.5); Segmented Neutrophils % 86.1 %; White Blood Count 5.6 K/mcL (4.3-11.1)
[2021-04-01 07:56] LABS: ABG Base Excess 5 mEq/L (-2 to 3); ABG HCO3 35 mEq/L (21-27); ABG Oxygen Saturation 96 % (95-98); ABG PCO2 74 mmHg (35-45); ABG PH 7.28 pH Units (7.32-7.45); ABG PO2 95 mmHg (85-104); ABG TCO2 37 mEq/L (20-26)
[2021-04-01] MEDS: Budesonide/Formoterol 160/4.5 1 PUFF INH IH SCH ×4 (07:58→20:03)
[2021-04-01] MEDS ORDERED: Ondansetron 4 MG/2 ML VIAL ONE (08:14)
[2021-04-01] MEDS ORDERED: *HR* Succinylcholine 200 MG/10 ML VIAL IVP ONE (08:14)
[2021-04-01] MEDS ORDERED: Lidocaine -MPF 2% 2 ML VIAL ONE (08:14)
[2021-04-01] MEDS ORDERED: Lidocaine HCL 4 ML Topical Solution (Laryng-O-Jet Kit Sterile Pak) TP ONE (08:14)
[2021-04-01] MEDS: Aspirin Enteric Coated 81 MG Tablet PO SCH (08:53)
[2021-04-01] MEDS: Metoprolol XL (24 HR) Succ 50 MG TAB.ER.24H PO SCH (08:53)
[2021-04-01] MEDS: Dexmedetomidine HCl 400 MCG/100 ML MLS IVC SCH ×3 (09:25→22:29)
[2021-04-01] MEDS: Piperacillin/Tazobactam 3.375 GM in 0.9 % Sodium Chloride Mini Bag 100 ML IVPB SCH ×3 (09:34→23:28)
[2021-04-01] MEDS: levETIRAcetam 1,000 MG in 0.9 % Sodium Chloride 100 ML IVPB SCH ×2 (09:35→21:09)
[2021-04-01] MEDS: Furosemide 20 MG/2 ML VIAL IVP SCH ×2 (09:35→20:50)
[2021-04-01] MEDS ORDERED: Lidocaine Viscous Oral Soln 15 ML SOLUTION ONE (10:08)
[2021-04-01 10:13] LABS: ABG Base Excess 6 mEq/L (-2 to 3); ABG HCO3 36 mEq/L (21-27); ABG Oxygen Saturation 94 % (95-98); ABG PCO2 71 mmHg (35-45); ABG PH 7.31 pH Units (7.32-7.45); ABG PO2 83 mmHg (85-104); ABG TCO2 38 mEq/L (20-26)
[2021-04-01] MEDS: Azithromycin 500 MG in 0.9 % Sodium Chloride 250 ML IVPB SCH (12:46)
[2021-04-01 14:06] LABS: ABG Base Excess 3 mEq/L (-2 to 3); ABG HCO3 33 mEq/L (21-27); ABG Oxygen Saturation 96 % (95-98); ABG PCO2 68 mmHg (35-45); ABG PH 7.29 pH Units (7.32-7.45); ABG PO2 97 mmHg (85-104); ABG TCO2 35 mEq/L (20-26)
[2021-04-01 14:12] LABS: Appearance of Body Fluid Cloudy (Clear); Volume of Body Fluid 20 mL
[2021-04-01] MEDS: Thiamine (B-1) 100 MG, Folic Acid 1 MG, MVI, adult with vitamin K 10 ML in 0.9 % Sodi... IVPB SCH (16:20)
[2021-04-01] MEDS: FentaNYL (PF) 1,000 MCG/100 ML IV.SOLN IVC SCH (19:16)
[2021-04-01] MEDS: Midazolam HCl 50 MG/100 ML IV.SOLN IVC SCH ×2 (19:17→23:28)
[2021-04-01] MEDS ORDERED: Artificial Tears SOLN 15 ML BOTTLE BOTH EYES PRN (19:57)
[2021-04-01] MEDS: Artificial Tears SOLN 15 ML BOTTLE BOTH EYES SCH ×2 (20:50→23:29)
[2021-04-01] MEDS: Chlorhexidine Rinse 15 ML MOUTHWASH MM SCH (20:50)
[2021-04-01] MEDS: Pantoprazole 40 MG VIAL IVP SCH (20:53)
[2021-04-01 21:02] LABS: ABG Base Excess 5 mEq/L (-2 to 3); ABG HCO3 33 mEq/L (21-27); ABG Oxygen Saturation 97 % (95-98); ABG PCO2 65 mmHg (35-45); ABG PH 7.32 pH Units (7.32-7.45); ABG PO2 99 mmHg (85-104); ABG TCO2 35 mEq/L (20-26); Blood Gas VT 500 cc
[2021-04-01] MEDS ORDERED: *HR* Etomidate 20 MG/10 ML AMPUL IVP ONE (22:00)
[2021-04-01] MEDS ORDERED: *HR* Midazolam HCl 5 MG/5 ML VIAL IVP ONE (22:00)
[2021-04-01] MEDS ORDERED: *HR* Midazolam HCl 2 MG/2 ML VIAL IVP ONE (22:00)
[2021-04-02] MEDS: FentaNYL (PF) 1,000 MCG/100 ML IV.SOLN IVC SCH ×3 (00:20→18:52)
[2021-04-02] MEDS: Dexmedetomidine HCl 400 MCG/100 ML MLS IVC SCH ×4 (03:09→22:33)
[2021-04-02] MEDS: Artificial Tears SOLN 15 ML BOTTLE BOTH EYES SCH ×6 (03:09→23:21)
[2021-04-02] MEDS: Ipratropium/Albuterol Neb 3 ML IH SCH ×6 (03:43→23:35)
[2021-04-02 04:40] LABS: ABG Base Excess 5 mEq/L (-2 to 3); ABG HCO3 31 mEq/L (21-27); ABG Oxygen Saturation 96 % (95-98); ABG PCO2 49 mmHg (35-45); ABG PH 7.42 pH Units (7.32-7.45); ABG PO2 81 mmHg (85-104); ABG TCO2 33 mEq/L (20-26); Blood Gas VT 500 cc
[2021-04-02] MEDS: MethylPREDNISolone 40 MG/ML VIAL IVP SCH ×2 (05:07→17:57)
[2021-04-02] MEDS: *HR* Heparin 5,000 UNIT/ML VIAL SQ SCH ×2 (05:07→17:57)
[2021-04-02 05:28] LABS: VBG Ionized Calcium 0.98 mmol/L (1.15-1.35)
[2021-04-02 05:29] LABS: Basophils % 0.1 %; Hematocrit 48.6 % (37.5-50.1); Hemoglobin 15.8 g/dL (12.9-16.9); Immature Granulocytes % 0.4 % (0-4); Immature Platelets 6.5 % (1.1-6.1); Lymphocytes # 0.7 K/mcL (0.6-4.6); Lymphocytes % 7.9 %; Mean Corpuscular HGB Conc 32.5 g/dL (31.6-35.5); Mean Corpuscular Hemoglobin 33.8 pg (28.0-33.3); Mean Corpuscular Volume 104.1 fL (83.0-100.0); Monocytes # 0.6 K/mcL (0.0-1.3); Monocytes % 6.6 %; Neutrophils # 7.2 K/mcL (1.6-8.9); Platelet Count 141 K/mcL (140-400); Red Blood Count 4.67 M/mcL (4.19-5.50); Red Cell Distribution Width 13.1 % (11.5-14.5); White Blood Count 8.5 K/mcL (4.3-11.1)
[2021-04-02 05:45] LABS: BUN/Creatinine Ratio 26 (6-26); Blood Urea Nitrogen 36 mg/dL (8-23); Carbon Dioxide 29 mEq/L (23-29); Chloride 103 mEq/L (98-107); Glucose 150 mg/dL (70-105); Magnesium 1.8 mg/dL (1.6-2.6); Osmolality,Calculated 299 (280-300); Phosphorous 3.3 mg/dL (2.7-4.5); Potassium 3.6 mEq/L (3.5-5.1); Sodium 139 mEq/L (136-145); eGFR For African Americans > 60 (> 60); eGFR For Non-African Americans 52 (> 60)
[2021-04-02] MEDS: Calcium Gluconate 1gm/50mL 1 GM/50 ML BAG IVPB SCH ×2 (05:58→06:43)
[2021-04-02] MEDS: Midazolam HCl 50 MG/100 ML IV.SOLN IVC SCH ×3 (06:02→21:17)
[2021-04-02] MEDS: Budesonide/Formoterol 160/4.5 1 PUFF INH IH SCH ×3 (07:24→19:47)
[2021-04-02] MEDS: Piperacillin/Tazobactam 3.375 GM in 0.9 % Sodium Chloride Mini Bag 100 ML IVPB SCH ×3 (09:06→23:20)
[2021-04-02] MEDS: levETIRAcetam 1,000 MG in 0.9 % Sodium Chloride 100 ML IVPB SCH ×2 (09:07→20:06)
[2021-04-02] MEDS: Chlorhexidine Rinse 15 ML MOUTHWASH MM SCH ×2 (09:07→20:05)
[2021-04-02] MEDS: Aspirin Enteric Coated 81 MG Tablet PO SCH (09:07)
[2021-04-02] MEDS: Furosemide 20 MG/2 ML VIAL IVP SCH ×2 (09:08→20:04)
[2021-04-02] MEDS: Metoprolol XL (24 HR) Succ 50 MG TAB.ER.24H PO SCH (09:09)
[2021-04-02] MEDS: Pantoprazole 40 MG VIAL IVP SCH (09:09)
[2021-04-02] MEDS: Azithromycin 500 MG in 0.9 % Sodium Chloride 250 ML IVPB SCH (11:00)
[2021-04-02] MEDS: Thiamine (B-1) 100 MG, Folic Acid 1 MG, MVI, adult with vitamin K 10 ML in 0.9 % Sodi... IVPB SCH (17:58)
[2021-04-03] MEDS: Dexmedetomidine HCl 400 MCG/100 ML MLS IVC SCH ×5 (02:04→20:49)
[2021-04-03] MEDS: FentaNYL (PF) 1,000 MCG/100 ML IV.SOLN IVC SCH ×3 (03:11→19:48)
[2021-04-03] MEDS: Artificial Tears SOLN 15 ML BOTTLE BOTH EYES SCH ×6 (03:11→23:24)
[2021-04-03] MEDS: Ipratropium/Albuterol Neb 3 ML IH SCH ×6 (03:42→23:28)
[2021-04-03 04:50] LABS: ABG Base Excess 5 mEq/L (-2 to 3); ABG HCO3 32 mEq/L (21-27); ABG Oxygen Saturation 93 % (95-98); ABG PCO2 56 mmHg (35-45); ABG PH 7.37 pH Units (7.32-7.45); ABG PO2 72 mmHg (85-104); ABG TCO2 34 mEq/L (20-26); Blood Gas Modality AF; Blood Gas VT 500 cc
[2021-04-03] MEDS: *HR* Heparin 5,000 UNIT/ML VIAL SQ SCH ×2 (05:03→17:36)
[2021-04-03] MEDS: MethylPREDNISolone 40 MG/ML VIAL IVP SCH ×2 (05:04→17:37)
[2021-04-03 05:13] LABS: Hemoglobin 15.9 g/dL (12.9-16.9); Platelet Count 122 K/mcL (140-400); Red Cell Distribution Width 13.3 % (11.5-14.5)
[2021-04-03 05:15] LABS: Hematocrit 50.2 % (37.5-50.1); Immature Granulocytes % 0.3 % (0-4); Immature Platelets 6.6 % (1.1-6.1); Lymphocytes # 0.3 K/mcL (0.6-4.6); Mean Corpuscular HGB Conc 31.7 g/dL (31.6-35.5); Mean Corpuscular Volume 104.1 fL (83.0-100.0); Mean Platelet Volume 10.8 fL (9.4-12.4); Monocytes # 0.3 K/mcL (0.0-1.3); Monocytes % 4.1 %; Neutrophils # 6.2 K/mcL (1.6-8.9); Red Blood Count 4.82 M/mcL (4.19-5.50); Segmented Neutrophils % 90.6 %; White Blood Count 6.8 K/mcL (4.3-11.1)
[2021-04-03 05:17] LABS: VBG Ionized Calcium 0.98 mmol/L (1.15-1.35)
[2021-04-03 05:34] LABS: BUN/Creatinine Ratio 25 (6-26); Blood Urea Nitrogen 29 mg/dL (8-23); Calcium 7.9 mg/dL (8.6-10.3); Carbon Dioxide 31 mEq/L (23-29); Chloride 103 mEq/L (98-107); Glucose 139 mg/dL (70-105); Magnesium 1.7 mg/dL (1.6-2.6); Osmolality,Calculated 300 (280-300); Phosphorous 3.4 mg/dL (2.7-4.5); Sodium 141 mEq/L (136-145); eGFR For African Americans > 60 (> 60); eGFR For Non-African Americans > 60 (> 60)
[2021-04-03] MEDS: Midazolam HCl 50 MG/100 ML IV.SOLN IVC SCH (06:05)
[2021-04-03] MEDS: Budesonide/Formoterol 160/4.5 1 PUFF INH IH SCH ×2 (07:53→19:46)
[2021-04-03] MEDS: Pantoprazole 40 MG VIAL IVP SCH (08:23)
[2021-04-03] MEDS: Piperacillin/Tazobactam 3.375 GM in 0.9 % Sodium Chloride Mini Bag 100 ML IVPB SCH ×3 (08:24→23:24)
[2021-04-03] MEDS: Chlorhexidine Rinse 15 ML MOUTHWASH MM SCH ×2 (08:25→19:50)
[2021-04-03] MEDS: Metoprolol XL (24 HR) Succ 50 MG TAB.ER.24H PO SCH (08:25)
[2021-04-03] MEDS: Furosemide 20 MG/2 ML VIAL IVP SCH ×2 (08:25→19:50)
[2021-04-03] MEDS: Aspirin Enteric Coated 81 MG Tablet PO SCH (08:25)
[2021-04-03] MEDS: levETIRAcetam 1,000 MG in 0.9 % Sodium Chloride 100 ML IVPB SCH ×2 (08:58→19:49)
[2021-04-03] MEDS: Azithromycin 500 MG in 0.9 % Sodium Chloride 250 ML IVPB SCH (12:22)
[2021-04-03] MEDS: Calcium Gluconate 1gm/50mL 1 GM/50 ML BAG IVPB SCH ×3 (12:38→14:50)
[2021-04-03] MEDS: Thiamine (B-1) 100 MG, Folic Acid 1 MG, MVI, adult with vitamin K 10 ML in 0.9 % Sodi... IVPB SCH (17:37)
[2021-04-03] MEDS ORDERED: Folic Acid 1 MG TABLET PO SCH (18:00)
[2021-04-03] MEDS ORDERED: Multivitamin Liquid 15 ML UDC GTUBE SCH (18:00)
[2021-04-04] MEDS: Dexmedetomidine HCl 400 MCG/100 ML MLS IVC SCH ×5 (01:16→20:21)
[2021-04-04] MEDS: Ipratropium/Albuterol Neb 3 ML IH SCH ×6 (03:42→23:25)
[2021-04-04] MEDS: Artificial Tears SOLN 15 ML BOTTLE BOTH EYES SCH ×6 (03:49→23:29)
[2021-04-04 04:04] LABS: Basophils % 0.1 %; Immature Granulocytes % 0.3 % (0-4); Red Cell Distribution Width 13.4 % (11.5-14.5)
[2021-04-04 04:06] LABS: Hematocrit 48.9 % (37.5-50.1); Hemoglobin 15.2 g/dL (12.9-16.9); Immature Platelets 6.6 % (1.1-6.1); Lymphocytes # 0.5 K/mcL (0.6-4.6); Lymphocytes % 5.2 %; Mean Corpuscular HGB Conc 31.1 g/dL (31.6-35.5); Mean Corpuscular Hemoglobin 32.7 pg (28.0-33.3); Mean Corpuscular Volume 105.2 fL (83.0-100.0); Mean Platelet Volume 11.2 fL (9.4-12.4); Monocytes # 0.5 K/mcL (0.0-1.3); Neutrophils # 7.7 K/mcL (1.6-8.9); Platelet Count 130 K/mcL (140-400); Red Blood Count 4.65 M/mcL (4.19-5.50); Segmented Neutrophils % 88.4 %; White Blood Count 8.7 K/mcL (4.3-11.1)
[2021-04-04 04:12] LABS: VBG Ionized Calcium 1.07 mmol/L (1.15-1.35)
[2021-04-04 04:21] LABS: BUN/Creatinine Ratio 25 (6-26); Blood Urea Nitrogen 29 mg/dL (8-23); Calcium 8.2 mg/dL (8.6-10.3); Carbon Dioxide 36 mEq/L (23-29); Chloride 103 mEq/L (98-107); Glucose 154 mg/dL (70-105); Osmolality,Calculated 307 (280-300); Phosphorous 3.1 mg/dL (2.7-4.5); Potassium 4.2 mEq/L (3.5-5.1); Sodium 144 mEq/L (136-145); eGFR For African Americans > 60 (> 60); eGFR For Non-African Americans > 60 (> 60)
[2021-04-04 04:28] LABS: ABG Base Excess 9 mEq/L (-2 to 3); ABG HCO3 37 mEq/L (21-27); ABG Oxygen Saturation 88 % (95-98); ABG PCO2 64 mmHg (35-45); ABG PH 7.37 pH Units (7.32-7.45); ABG PO2 59 mmHg (85-104); ABG TCO2 39 mEq/L (20-26); Blood Gas Modality AF; Blood Gas VT 500 cc
[2021-04-04] MEDS: *HR* Heparin 5,000 UNIT/ML VIAL SQ SCH ×2 (05:21→17:21)
[2021-04-04] MEDS: MethylPREDNISolone 40 MG/ML VIAL IVP SCH ×2 (05:28→17:21)
[2021-04-04] MEDS: FentaNYL (PF) 1,000 MCG/100 ML IV.SOLN IVC SCH (06:20)
[2021-04-04] MEDS: Budesonide/Formoterol 160/4.5 1 PUFF INH IH SCH ×2 (07:37→19:38)
[2021-04-04] MEDS: Pantoprazole 40 MG VIAL IVP SCH (07:47)
[2021-04-04] MEDS: Piperacillin/Tazobactam 3.375 GM in 0.9 % Sodium Chloride Mini Bag 100 ML IVPB SCH (07:47)
[2021-04-04] MEDS: levETIRAcetam 1,000 MG in 0.9 % Sodium Chloride 100 ML IVPB SCH ×2 (07:48→20:10)
[2021-04-04] MEDS: Metoprolol XL (24 HR) Succ 50 MG TAB.ER.24H PO SCH (07:49)
[2021-04-04] MEDS: Chlorhexidine Rinse 15 ML MOUTHWASH MM SCH ×2 (07:49→20:10)
[2021-04-04] MEDS: Furosemide 20 MG/2 ML VIAL IVP SCH ×2 (07:49→20:10)
[2021-04-04] MEDS: Aspirin 81 MG TAB.CHEW PO SCH (07:49)
[2021-04-04] MEDS: Azithromycin 500 MG in 0.9 % Sodium Chloride 250 ML IVPB SCH (11:00)
[2021-04-04] MEDS: *HR* LORazepam 2 MG/ML VIAL IVP SCH ×2 (11:32→17:01)
[2021-04-04] MEDS: Midazolam HCl 50 MG/100 ML IV.SOLN IVC SCH (12:30)
[2021-04-04] MEDS ORDERED: *HR* Succinylcholine 200 MG/10 ML VIAL IVP ONE (12:48)
[2021-04-04] MEDS ORDERED: *HR* Etomidate 20 MG/10 ML AMPUL IVP ONE (12:48)
[2021-04-04] MEDS ORDERED: Artificial Tears SOLN 15 ML BOTTLE BOTH EYES PRN (15:51)
[2021-04-04 16:21] LABS: ABG Base Excess 11 mEq/L (-2 to 3); ABG HCO3 38 mEq/L (21-27); ABG Oxygen Saturation 92 % (95-98); ABG PCO2 60 mmHg (35-45); ABG PH 7.41 pH Units (7.32-7.45); ABG PO2 64 mmHg (85-104); ABG TCO2 40 mEq/L (20-26); Blood Gas VT 500 cc
[2021-04-04] MEDS: cefTRIAXone 1,000 MG in Water for inj. (sterile) 10 ML IVP SCH (17:21)
[2021-04-04] MEDS: Thiamine (B-1) 100 MG TABLET PO SCH (20:11)
[2021-04-05] MEDS: Midazolam HCl 50 MG/100 ML IV.SOLN IVC SCH ×3 (00:20→20:12)
[2021-04-05] MEDS: Dexmedetomidine HCl 400 MCG/100 ML MLS IVC SCH ×6 (00:35→21:21)
[2021-04-05] MEDS: Artificial Tears SOLN 15 ML BOTTLE BOTH EYES SCH ×6 (03:28→23:27)
[2021-04-05] MEDS: FentaNYL (PF) 1,000 MCG/100 ML IV.SOLN IVC SCH ×2 (03:31→23:27)
[2021-04-05] MEDS: Ipratropium/Albuterol Neb 3 ML IH SCH ×6 (03:43→23:35)
[2021-04-05 03:55] LABS: Basophils % 0.1 %; Hemoglobin 15.7 g/dL (12.9-16.9); Immature Granulocytes % 0.5 % (0-4); Red Cell Distribution Width 13.2 % (11.5-14.5)
[2021-04-05 03:56] LABS: Hematocrit 50.3 % (37.5-50.1); Immature Platelets 7.2 % (1.1-6.1); Lymphocytes # 0.7 K/mcL (0.6-4.6); Lymphocytes % 8.1 %; Mean Corpuscular HGB Conc 31.2 g/dL (31.6-35.5); Mean Corpuscular Hemoglobin 33.1 pg (28.0-33.3); Mean Corpuscular Volume 106.1 fL (83.0-100.0); Mean Platelet Volume 10.9 fL (9.4-12.4); Monocytes # 0.6 K/mcL (0.0-1.3); Platelet Count 111 K/mcL (140-400); Red Blood Count 4.74 M/mcL (4.19-5.50); Segmented Neutrophils % 84.3 %; White Blood Count 8.3 K/mcL (4.3-11.1)
[2021-04-05 04:05] LABS: VBG Ionized Calcium 0.84 mmol/L (1.15-1.35)
[2021-04-05 04:12] LABS: BUN/Creatinine Ratio 28 (6-26); Blood Urea Nitrogen 27 mg/dL (8-23); Calcium 8.3 mg/dL (8.6-10.3); Carbon Dioxide 35 mEq/L (23-29); Chloride 101 mEq/L (98-107); Glucose 138 mg/dL (70-105); Magnesium 1.9 mg/dL (1.6-2.6); Osmolality,Calculated 299 (280-300); Potassium 3.9 mEq/L (3.5-5.1); Sodium 141 mEq/L (136-145); eGFR For African Americans > 60 (> 60); eGFR For Non-African Americans > 60 (> 60)
[2021-04-05 04:16] LABS: ABG Base Excess 9 mEq/L (-2 to 3); ABG HCO3 37 mEq/L (21-27); ABG Oxygen Saturation 93 % (95-98); ABG PCO2 60 mmHg (35-45); ABG PH 7.39 pH Units (7.32-7.45); ABG PO2 70 mmHg (85-104); ABG TCO2 39 mEq/L (20-26); Blood Gas VT 500 cc
[2021-04-05] MEDS: *HR* Heparin 5,000 UNIT/ML VIAL SQ SCH ×2 (05:07→18:03)
[2021-04-05] MEDS: MethylPREDNISolone 40 MG/ML VIAL IVP SCH ×2 (05:07→18:02)
[2021-04-05] MEDS: Budesonide/Formoterol 160/4.5 1 PUFF INH IH SCH ×2 (07:21→19:55)
[2021-04-05] MEDS: Calcium Gluconate 1gm/50mL 1 GM/50 ML BAG IVPB PRN (08:52)
[2021-04-05] MEDS: levETIRAcetam 1,000 MG in 0.9 % Sodium Chloride 100 ML IVPB SCH ×2 (08:55→20:25)
[2021-04-05] MEDS: cefTRIAXone 1,000 MG in Water for inj. (sterile) 10 ML IVP SCH (08:56)
[2021-04-05] MEDS: Thiamine (B-1) 100 MG TABLET PO SCH ×3 (08:57→20:18)
[2021-04-05] MEDS: Pantoprazole 40 MG VIAL IVP SCH (08:57)
[2021-04-05] MEDS: Aspirin 81 MG TAB.CHEW PO SCH (08:57)
[2021-04-05] MEDS: Folic Acid 1 MG TABLET PO SCH (08:57)
[2021-04-05] MEDS: Chlorhexidine Rinse 15 ML MOUTHWASH MM SCH ×2 (08:57→20:18)
[2021-04-05] MEDS: Metoprolol XL (24 HR) Succ 50 MG TAB.ER.24H PO SCH (08:59)
[2021-04-05] MEDS ORDERED: Furosemide 20 MG/2 ML VIAL IVP SCH (09:00)
[2021-04-05] MEDS: Furosemide 20 MG/2 ML VIAL IVP SCH ×2 (09:00→20:19)
[2021-04-05] MEDS: Calcium Gluconate 1gm/50mL 1 GM/50 ML BAG IVPB SCH ×3 (11:37→13:43)
[2021-04-05] MEDS: Docusate Oral Soln 100 MG/10 ML UDC GTUBE SCH (20:18)
[2021-04-06] MEDS: Dexmedetomidine HCl 400 MCG/100 ML MLS IVC SCH ×6 (01:07→20:57)
[2021-04-06] MEDS: Ipratropium/Albuterol Neb 3 ML IH SCH ×6 (03:29→23:51)
[2021-04-06] MEDS: Artificial Tears SOLN 15 ML BOTTLE BOTH EYES SCH ×6 (03:47→23:59)
[2021-04-06 04:01] LABS: VBG Ionized Calcium 1.05 mmol/L (1.15-1.35)
[2021-04-06 04:06] LABS: Basophils % 0.1 %; Immature Granulocytes % 0.3 % (0-4)
[2021-04-06 04:08] LABS: Alanine Aminotransferase 22 Units/L (7-52); Albumin 3.1 g/dL (3.5-5.7); Albumin/Globulin Ratio 1.1 (1.1-2.2); Alkaline Phosphatase 56 Units/L (34-104); Aspartate Amino Transferase 24 Units/L (13-39); BUN/Creatinine Ratio 29 (6-26); Bilirubin,Direct 0.1 mg/dL (0.0-0.2); Bilirubin,Indirect 0.3 mg/dL (0.0-1.0); Bilirubin,Total 0.4 mg/dL (0.3-1.0); Blood Urea Nitrogen 32 mg/dL (8-23); Calcium 8.7 mg/dL (8.6-10.3); Carbon Dioxide 39 mEq/L (23-29); Chloride 100 mEq/L (98-107); Globulin 2.7 g/dL (2.4-3.5); Glucose 170 mg/dL (70-105); Hematocrit 49.9 % (37.5-50.1); Hemoglobin 15.6 g/dL (12.9-16.9); Immature Platelets 8.5 % (1.1-6.1); Lymphocytes # 0.4 K/mcL (0.6-4.6); Lymphocytes % 5.3 %; Magnesium 2.3 mg/dL (1.6-2.6); Mean Corpuscular HGB Conc 31.3 g/dL (31.6-35.5); Mean Corpuscular Hemoglobin 32.8 pg (28.0-33.3); Mean Corpuscular Volume 105.1 fL (83.0-100.0); Mean Platelet Volume 11.2 fL (9.4-12.4); Monocytes # 0.5 K/mcL (0.0-1.3); Monocytes % 6.9 %; Neutrophils # 6.6 K/mcL (1.6-8.9); Osmolality,Calculated 307 (280-300); Phosphorous 2.5 mg/dL (2.7-4.5); Platelet Count 129 K/mcL (140-400); Red Blood Count 4.75 M/mcL (4.19-5.50); Red Cell Distribution Width 13.3 % (11.5-14.5); Segmented Neutrophils % 87.4 %; Sodium 143 mEq/L (136-145); Total Protein 5.8 g/dL (6.4-8.9); White Blood Count 7.6 K/mcL (4.3-11.1); eGFR For African Americans > 60 (> 60); eGFR For Non-African Americans > 60 (> 60)
[2021-04-06 04:25] LABS: ABG Base Excess 10 mEq/L (-2 to 3); ABG HCO3 37 mEq/L (21-27); ABG Oxygen Saturation 94 % (95-98); ABG PCO2 56 mmHg (35-45); ABG PH 7.43 pH Units (7.32-7.45); ABG PO2 72 mmHg (85-104); ABG TCO2 39 mEq/L (20-26); Blood Gas VT 500 cc
[2021-04-06] MEDS: MethylPREDNISolone 40 MG/ML VIAL IVP SCH (05:09)
[2021-04-06] MEDS: *HR* Heparin 5,000 UNIT/ML VIAL SQ SCH ×2 (05:09→17:07)
[2021-04-06] MEDS: Midazolam HCl 50 MG/100 ML IV.SOLN IVC SCH (05:10)
[2021-04-06] MEDS: Budesonide/Formoterol 160/4.5 1 PUFF INH IH SCH ×2 (07:26→19:52)
[2021-04-06] MEDS: Chlorhexidine Rinse 15 ML MOUTHWASH MM SCH ×2 (08:54→19:58)
[2021-04-06] MEDS: Folic Acid 1 MG TABLET PO SCH (08:54)
[2021-04-06] MEDS: Thiamine (B-1) 100 MG TABLET PO SCH ×3 (08:54→19:58)
[2021-04-06] MEDS: Aspirin 81 MG TAB.CHEW PO SCH (08:54)
[2021-04-06] MEDS: Docusate Oral Soln 100 MG/10 ML UDC GTUBE SCH ×2 (08:54→19:58)
[2021-04-06] MEDS: Pantoprazole 40 MG VIAL IVP SCH (08:55)
[2021-04-06] MEDS: cefTRIAXone 1,000 MG in Water for inj. (sterile) 10 ML IVP SCH (08:55)
[2021-04-06] MEDS: Furosemide 20 MG/2 ML VIAL IVP SCH ×2 (08:55→19:58)
[2021-04-06] MEDS: Metoprolol XL (24 HR) Succ 50 MG TAB.ER.24H PO SCH (09:02)
[2021-04-06] MEDS: levETIRAcetam 1,000 MG in 0.9 % Sodium Chloride 100 ML IVPB SCH ×2 (09:02→19:58)
[2021-04-06] MEDS: Calcium Gluconate 1gm/50mL 1 GM/50 ML BAG IVPB PRN (10:32)
[2021-04-07] MEDS: FentaNYL (PF) 1,000 MCG/100 ML IV.SOLN IVC SCH
[2021-04-07] MEDS: Dexmedetomidine HCl 400 MCG/100 ML MLS IVC SCH ×4 (01:59→23:05)
[2021-04-07] MEDS: Artificial Tears SOLN 15 ML BOTTLE BOTH EYES SCH ×6 (03:38→23:06)
[2021-04-07] MEDS: Ipratropium/Albuterol Neb 3 ML IH SCH ×6 (03:48→23:19)
[2021-04-07 04:23] LABS: ABG Base Excess 16 mEq/L (-2 to 3); ABG HCO3 43 mEq/L (21-27); ABG Oxygen Saturation 95 % (95-98); ABG PCO2 62 mmHg (35-45); ABG PH 7.46 pH Units (7.32-7.45); ABG PO2 73 mmHg (85-104); ABG TCO2 45 mEq/L (20-26); Blood Gas VT 500 cc
[2021-04-07] MEDS: *HR* Heparin 5,000 UNIT/ML VIAL SQ SCH ×2 (05:05→17:46)
[2021-04-07 05:56] LABS: Basophils % 0.1 %; Eosinophils % 0.1 %; Hematocrit 51.8 % (37.5-50.1); Hemoglobin 15.8 g/dL (12.9-16.9); Immature Granulocytes % 0.5 % (0-4); Lymphocytes % 11.7 %; Mean Corpuscular HGB Conc 30.5 g/dL (31.6-35.5); Mean Corpuscular Hemoglobin 32.7 pg (28.0-33.3); Mean Corpuscular Volume 107.2 fL (83.0-100.0); Mean Platelet Volume 11.4 fL (9.4-12.4); Monocytes # 0.6 K/mcL (0.0-1.3); Monocytes % 6.6 %; Platelet Count 119 K/mcL (140-400); Red Blood Count 4.83 M/mcL (4.19-5.50); Red Cell Distribution Width 13.6 % (11.5-14.5); White Blood Count 8.6 K/mcL (4.3-11.1)
[2021-04-07 06:15] LABS: BUN/Creatinine Ratio 34 (6-26); Blood Urea Nitrogen 37 mg/dL (8-23); Calcium 8.9 mg/dL (8.6-10.3); Carbon Dioxide 40 mEq/L (23-29); Chloride 100 mEq/L (98-107); Glucose 148 mg/dL (70-105); Magnesium 2.3 mg/dL (1.6-2.6); Osmolality,Calculated 309 (280-300); Potassium 3.9 mEq/L (3.5-5.1); Sodium 144 mEq/L (136-145); eGFR For African Americans > 60 (> 60); eGFR For Non-African Americans > 60 (> 60)
[2021-04-07] MEDS: Budesonide/Formoterol 160/4.5 1 PUFF INH IH SCH ×2 (07:05→20:10)
[2021-04-07] MEDS: Metoprolol XL (24 HR) Succ 50 MG TAB.ER.24H PO SCH (07:43)
[2021-04-07] MEDS: Aspirin 81 MG TAB.CHEW PO SCH (07:53)
[2021-04-07] MEDS: Furosemide 20 MG/2 ML VIAL IVP SCH ×2 (07:53→19:56)
[2021-04-07] MEDS: Folic Acid 1 MG TABLET PO SCH (07:53)
[2021-04-07] MEDS: MethylPREDNISolone 40 MG/ML VIAL IVP SCH (07:53)
[2021-04-07] MEDS: Thiamine (B-1) 100 MG TABLET PO SCH ×3 (07:53→19:53)
[2021-04-07] MEDS: Docusate Oral Soln 100 MG/10 ML UDC GTUBE SCH ×2 (07:54→19:53)
[2021-04-07] MEDS: Pantoprazole 40 MG VIAL IVP SCH (07:54)
[2021-04-07] MEDS: Chlorhexidine Rinse 15 ML MOUTHWASH MM SCH ×2 (07:54→19:53)
[2021-04-07] MEDS: levETIRAcetam 1,000 MG in 0.9 % Sodium Chloride 100 ML IVPB SCH ×2 (08:02→19:59)
[2021-04-07] MEDS: cefTRIAXone 1,000 MG in Water for inj. (sterile) 10 ML IVP SCH (08:02)
[2021-04-07] MEDS ORDERED: acetaZOLAMIDE 500 MG in Water for inj. (sterile) 5 ML IVP ONE (09:30)
[2021-04-07] MEDS: Metoprolol 100 MG TABLET PO SCH ×2 (09:54→19:56)
[2021-04-07] MEDS: Midazolam HCl 50 MG/100 ML IV.SOLN IVC SCH (12:15)
[2021-04-08] MEDS: Midazolam HCl 50 MG/100 ML IV.SOLN IVC SCH ×3 (00:29→19:59)
[2021-04-08] MEDS ORDERED: *HR* Metoprolol 5 MG/5 ML VIAL IVP ONE ×4 (00:51→03:12)
[2021-04-08] MEDS: Artificial Tears SOLN 15 ML BOTTLE BOTH EYES SCH ×6 (03:25→23:24)
[2021-04-08 03:47] LABS: Immature Granulocytes % 0.3 % (0-4)
[2021-04-08 03:48] LABS: Eosinophils % 0.1 %; Hematocrit 46.8 % (37.5-50.1); Hemoglobin 14.4 g/dL (12.9-16.9); Lymphocytes % 14.2 %; Mean Corpuscular HGB Conc 30.8 g/dL (31.6-35.5); Mean Corpuscular Hemoglobin 33.2 pg (28.0-33.3); Mean Corpuscular Volume 107.8 fL (83.0-100.0); Monocytes # 0.4 K/mcL (0.0-1.3); Monocytes % 6.2 %; Platelet Count 127 K/mcL (140-400); Red Blood Count 4.34 M/mcL (4.19-5.50); Red Cell Distribution Width 13.6 % (11.5-14.5); Segmented Neutrophils % 79.2 %; White Blood Count 7.1 K/mcL (4.3-11.1)
[2021-04-08 03:49] LABS: Neutrophils # 5.6 K/mcL (1.6-8.9)
[2021-04-08 03:59] LABS: VBG Ionized Calcium 1.18 mmol/L (1.15-1.35)
[2021-04-08] MEDS: Ipratropium/Albuterol Neb 3 ML IH SCH ×6 (04:01→23:38)
[2021-04-08 04:03] LABS: BUN/Creatinine Ratio 33 (6-26); Blood Urea Nitrogen 38 mg/dL (8-23); Carbon Dioxide 38 mEq/L (23-29); Chloride 100 mEq/L (98-107); Glucose 199 mg/dL (70-105); Magnesium 2.3 mg/dL (1.6-2.6); Osmolality,Calculated 307 (280-300); Potassium 3.8 mEq/L (3.5-5.1); Sodium 141 mEq/L (136-145); eGFR For African Americans > 60 (> 60); eGFR For Non-African Americans > 60 (> 60)
[2021-04-08] MEDS: Dexmedetomidine HCl 400 MCG/100 ML MLS IVC SCH ×3 (04:33→18:20)
[2021-04-08] MEDS: *HR* Heparin 5,000 UNIT/ML VIAL SQ SCH ×2 (04:34→17:59)
[2021-04-08 05:00] LABS: ABG Base Excess 8 mEq/L (-2 to 3); ABG HCO3 37 mEq/L (21-27); ABG Oxygen Saturation 94 % (95-98); ABG PCO2 63 mmHg (35-45); ABG PH 7.37 pH Units (7.32-7.45); ABG PO2 78 mmHg (85-104); ABG TCO2 39 mEq/L (20-26); Blood Gas Modality ASSIST CONTROL; Blood Gas VT 500 cc
[2021-04-08] MEDS: Budesonide/Formoterol 160/4.5 1 PUFF INH IH SCH ×2 (07:31→20:15)
[2021-04-08] MEDS: levETIRAcetam 1,000 MG in 0.9 % Sodium Chloride 100 ML IVPB SCH ×2 (08:16→19:48)
[2021-04-08] MEDS: Chlorhexidine Rinse 15 ML MOUTHWASH MM SCH ×2 (08:17→19:48)
[2021-04-08] MEDS: Folic Acid 1 MG TABLET PO SCH (08:36)
[2021-04-08] MEDS: Aspirin 81 MG TAB.CHEW PO SCH (08:36)
[2021-04-08] MEDS: Docusate Oral Soln 100 MG/10 ML UDC GTUBE SCH ×2 (08:36→19:48)
[2021-04-08] MEDS: Thiamine (B-1) 100 MG TABLET PO SCH ×3 (08:36→19:52)
[2021-04-08] MEDS: cefTRIAXone 1,000 MG in Water for inj. (sterile) 10 ML IVP SCH (08:40)
[2021-04-08] MEDS: Pantoprazole 40 MG VIAL IVP SCH (08:41)
[2021-04-08] MEDS: MethylPREDNISolone 40 MG/ML VIAL IVP SCH (08:41)
[2021-04-08] MEDS: Furosemide 20 MG/2 ML VIAL IVP SCH (08:41)
[2021-04-08] MEDS: FentaNYL (PF) 1,000 MCG/100 ML IV.SOLN IVC SCH ×2 (10:34→20:00)
[2021-04-08] MEDS: Thiamine (B-1) 100 MG TABLET GTUBE SCH (20:06)
[2021-04-09] MEDS: Midazolam HCl 50 MG/100 ML IV.SOLN IVC SCH ×4 (01:32→23:13)
[2021-04-09] MEDS: Dexmedetomidine HCl 400 MCG/100 ML MLS IVC SCH ×4 (02:08→19:58)
[2021-04-09 03:33] LABS: Eosinophils % 0.4 %; Hematocrit 44.9 % (37.5-50.1); Hemoglobin 13.7 g/dL (12.9-16.9); Immature Granulocytes % 0.4 % (0-4); Lymphocytes # 0.8 K/mcL (0.6-4.6); Lymphocytes % 10.8 %; Mean Corpuscular HGB Conc 30.5 g/dL (31.6-35.5); Mean Corpuscular Hemoglobin 33.4 pg (28.0-33.3); Mean Corpuscular Volume 109.5 fL (83.0-100.0); Mean Platelet Volume 11.7 fL (9.4-12.4); Monocytes # 0.6 K/mcL (0.0-1.3); Monocytes % 7.4 %; Neutrophils # 6.3 K/mcL (1.6-8.9); Platelet Count 119 K/mcL (140-400); Red Cell Distribution Width 13.5 % (11.5-14.5); White Blood Count 7.8 K/mcL (4.3-11.1)
[2021-04-09] MEDS: Artificial Tears SOLN 15 ML BOTTLE BOTH EYES SCH ×6 (03:45→23:55)
[2021-04-09 03:51] LABS: BUN/Creatinine Ratio 40 (6-26); Blood Urea Nitrogen 39 mg/dL (8-23); Calcium 8.4 mg/dL (8.6-10.3); Carbon Dioxide 34 mEq/L (23-29); Chloride 107 mEq/L (98-107); Glucose 146 mg/dL (70-105); Magnesium 2.2 mg/dL (1.6-2.6); Osmolality,Calculated 308 (280-300); Potassium 4.4 mEq/L (3.5-5.1); Sodium 143 mEq/L (136-145); eGFR For African Americans > 60 (> 60); eGFR For Non-African Americans > 60 (> 60)
[2021-04-09] MEDS: Ipratropium/Albuterol Neb 3 ML IH SCH ×6 (03:56→23:32)
[2021-04-09 04:17] LABS: ABG Base Excess 9 mEq/L (-2 to 3); ABG HCO3 39 mEq/L (21-27); ABG Oxygen Saturation 95 % (95-98); ABG PCO2 77 mmHg (35-45); ABG PH 7.31 pH Units (7.32-7.45); ABG PO2 84 mmHg (85-104); ABG TCO2 41 mEq/L (20-26); Blood Gas Modality ASSIST CONTROL; Blood Gas VT 500 cc
[2021-04-09] MEDS: *HR* Heparin 5,000 UNIT/ML VIAL SQ SCH ×2 (05:22→16:34)
[2021-04-09] MEDS: FentaNYL (PF) 1,000 MCG/100 ML IV.SOLN IVC SCH ×3 (05:23→20:50)
[2021-04-09] MEDS: Budesonide/Formoterol 160/4.5 1 PUFF INH IH SCH ×2 (07:52→19:34)
[2021-04-09] MEDS: Docusate Oral Soln 100 MG/10 ML UDC GTUBE SCH ×2 (09:07→19:55)
[2021-04-09] MEDS: Folic Acid 1 MG TABLET PO SCH (09:07)
[2021-04-09] MEDS: Aspirin 81 MG TAB.CHEW PO SCH (09:07)
[2021-04-09] MEDS: Thiamine (B-1) 100 MG TABLET GTUBE SCH ×3 (09:07→19:55)
[2021-04-09] MEDS: Chlorhexidine Rinse 15 ML MOUTHWASH MM SCH ×2 (09:08→19:55)
[2021-04-09] MEDS: Furosemide 20 MG/2 ML VIAL IVP SCH (09:08)
[2021-04-09] MEDS: MethylPREDNISolone 40 MG/ML VIAL IVP SCH (09:09)
[2021-04-09] MEDS: Pantoprazole 40 MG VIAL IVP SCH (09:09)
[2021-04-09] MEDS: cefTRIAXone 1,000 MG in Water for inj. (sterile) 10 ML IVP SCH (09:09)
[2021-04-09] MEDS: levETIRAcetam 1,000 MG in 0.9 % Sodium Chloride 100 ML IVPB SCH ×2 (09:16→21:28)
[2021-04-09 12:15] LABS: Phosphorous 3.8 mg/dL (2.7-4.5)
[2021-04-10] MEDS: Dexmedetomidine HCl 400 MCG/100 ML MLS IVC SCH ×5 (01:15→19:04)
[2021-04-10] MEDS: Artificial Tears SOLN 15 ML BOTTLE BOTH EYES SCH ×5 (03:23→19:41)
[2021-04-10] MEDS: Ipratropium/Albuterol Neb 3 ML IH SCH ×6 (03:27→23:39)
[2021-04-10 04:25] LABS: Basophils % 0.1 %; Eosinophils % 0.6 %; Hematocrit 43.1 % (37.5-50.1); Hemoglobin 13.4 g/dL (12.9-16.9); Immature Granulocytes % 0.3 % (0-4); Lymphocytes # 0.7 K/mcL (0.6-4.6); Lymphocytes % 11.1 %; Mean Corpuscular HGB Conc 31.1 g/dL (31.6-35.5); Mean Corpuscular Hemoglobin 33.6 pg (28.0-33.3); Mean Platelet Volume 12.3 fL (9.4-12.4); Monocytes # 0.5 K/mcL (0.0-1.3); Neutrophils # 5.4 K/mcL (1.6-8.9); Platelet Count 123 K/mcL (140-400); Red Blood Count 3.99 M/mcL (4.19-5.50); Red Cell Distribution Width 13.2 % (11.5-14.5); Segmented Neutrophils % 80.9 %; White Blood Count 6.7 K/mcL (4.3-11.1)
[2021-04-10 04:39] LABS: BUN/Creatinine Ratio 44 (6-26); Blood Urea Nitrogen 37 mg/dL (8-23); Calcium 8.9 mg/dL (8.6-10.3); Carbon Dioxide 36 mEq/L (23-29); Chloride 105 mEq/L (98-107); Glucose 151 mg/dL (70-105); Magnesium 2.1 mg/dL (1.6-2.6); Osmolality,Calculated 308 (280-300); Potassium 4.4 mEq/L (3.5-5.1); Sodium 143 mEq/L (136-145); eGFR For African Americans > 60 (> 60); eGFR For Non-African Americans > 60 (> 60)
[2021-04-10 05:03] LABS: ABG Base Excess 9 mEq/L (-2 to 3); ABG HCO3 37 mEq/L (21-27); ABG Oxygen Saturation 93 % (95-98); ABG PCO2 66 mmHg (35-45); ABG PH 7.36 pH Units (7.32-7.45); ABG PO2 73 mmHg (85-104); ABG TCO2 39 mEq/L (20-26); Blood Gas VT 500 cc
[2021-04-10] MEDS: *HR* Heparin 5,000 UNIT/ML VIAL SQ SCH ×2 (05:31→17:38)
[2021-04-10] MEDS: FentaNYL (PF) 1,000 MCG/100 ML IV.SOLN IVC SCH ×3 (06:43→22:09)
[2021-04-10] MEDS: Midazolam HCl 50 MG/100 ML IV.SOLN IVC SCH ×3 (07:10→20:58)
[2021-04-10] MEDS: Budesonide/Formoterol 160/4.5 1 PUFF INH IH SCH ×2 (07:33→19:53)
[2021-04-10] MEDS: MethylPREDNISolone 40 MG/ML VIAL IVP SCH (08:01)
[2021-04-10] MEDS: Docusate Oral Soln 100 MG/10 ML UDC GTUBE SCH ×2 (08:01→19:41)
[2021-04-10] MEDS: Chlorhexidine Rinse 15 ML MOUTHWASH MM SCH ×2 (08:01→19:41)
[2021-04-10] MEDS: Pantoprazole 40 MG VIAL IVP SCH (08:01)
[2021-04-10] MEDS: Thiamine (B-1) 100 MG TABLET GTUBE SCH ×3 (08:02→19:42)
[2021-04-10] MEDS: Aspirin 81 MG TAB.CHEW PO SCH (08:02)
[2021-04-10] MEDS: Furosemide 20 MG/2 ML VIAL IVP SCH (08:02)
[2021-04-10] MEDS: Folic Acid 1 MG TABLET PO SCH (08:02)
[2021-04-10] MEDS: levETIRAcetam 1,000 MG in 0.9 % Sodium Chloride 100 ML IVPB SCH ×2 (08:04→21:03)
[2021-04-10] MEDS: QUEtiapine Fumarate 25 MG TABLET GTUBE SCH (19:42)
[2021-04-11] MEDS: Dexmedetomidine HCl 400 MCG/100 ML MLS IVC SCH ×5 (00:25→23:54)
[2021-04-11] MEDS: Artificial Tears SOLN 15 ML BOTTLE BOTH EYES SCH ×7 (00:26→23:49)
[2021-04-11] MEDS: Ipratropium/Albuterol Neb 3 ML IH SCH ×6 (03:37→23:12)
[2021-04-11 04:16] LABS: Basophils % 0.1 %; Eosinophils % 0.3 %; Hematocrit 44.6 % (37.5-50.1); Hemoglobin 13.9 g/dL (12.9-16.9); Immature Granulocytes % 0.2 % (0-4); Lymphocytes # 0.8 K/mcL (0.6-4.6); Lymphocytes % 8.3 %; Mean Corpuscular HGB Conc 31.2 g/dL (31.6-35.5); Mean Corpuscular Hemoglobin 33.7 pg (28.0-33.3); Mean Corpuscular Volume 108.3 fL (83.0-100.0); Mean Platelet Volume 12.1 fL (9.4-12.4); Monocytes # 0.7 K/mcL (0.0-1.3); Monocytes % 6.7 %; Neutrophils # 8.1 K/mcL (1.6-8.9); Platelet Count 129 K/mcL (140-400); Red Blood Count 4.12 M/mcL (4.19-5.50); Red Cell Distribution Width 13.2 % (11.5-14.5); Segmented Neutrophils % 84.4 %; White Blood Count 9.7 K/mcL (4.3-11.1)
[2021-04-11 04:17] LABS: VBG Ionized Calcium 1.22 mmol/L (1.15-1.35)
[2021-04-11 04:33] LABS: BUN/Creatinine Ratio 48 (6-26); Blood Urea Nitrogen 46 mg/dL (8-23); Calcium 9.2 mg/dL (8.6-10.3); Carbon Dioxide 36 mEq/L (23-29); Chloride 105 mEq/L (98-107); Glucose 115 mg/dL (70-105); Magnesium 2.2 mg/dL (1.6-2.6); Osmolality,Calculated 309 (280-300); Phosphorous 3.5 mg/dL (2.7-4.5); Potassium 4.7 mEq/L (3.5-5.1); Sodium 143 mEq/L (136-145); eGFR For African Americans > 60 (> 60); eGFR For Non-African Americans > 60 (> 60)
[2021-04-11 04:45] LABS: ABG Base Excess 7 mEq/L (-2 to 3); ABG HCO3 36 mEq/L (21-27); ABG Oxygen Saturation 94 % (95-98); ABG PCO2 66 mmHg (35-45); ABG PH 7.35 pH Units (7.32-7.45); ABG PO2 76 mmHg (85-104); ABG TCO2 38 mEq/L (20-26); Blood Gas Modality ASSIST CONTROL; Blood Gas VT 450 cc
[2021-04-11] MEDS: Midazolam HCl 50 MG/100 ML IV.SOLN IVC SCH ×3 (05:01→20:29)
[2021-04-11] MEDS: *HR* Heparin 5,000 UNIT/ML VIAL SQ SCH ×2 (05:23→17:43)
[2021-04-11] MEDS: FentaNYL (PF) 1,000 MCG/100 ML IV.SOLN IVC SCH ×3 (06:19→19:50)
[2021-04-11] MEDS: Budesonide/Formoterol 160/4.5 1 PUFF INH IH SCH ×2 (07:22→19:22)
[2021-04-11] MEDS: Docusate Oral Soln 100 MG/10 ML UDC GTUBE SCH ×2 (08:42→20:19)
[2021-04-11] MEDS: Thiamine (B-1) 100 MG TABLET GTUBE SCH ×3 (08:42→20:19)
[2021-04-11] MEDS: Pantoprazole 40 MG VIAL IVP SCH (08:42)
[2021-04-11] MEDS: Folic Acid 1 MG TABLET PO SCH (08:42)
[2021-04-11] MEDS: Chlorhexidine Rinse 15 ML MOUTHWASH MM SCH ×2 (08:42→20:19)
[2021-04-11] MEDS: MethylPREDNISolone 40 MG/ML VIAL IVP SCH (08:42)
[2021-04-11] MEDS: Aspirin 81 MG TAB.CHEW PO SCH (08:42)
[2021-04-11] MEDS: levETIRAcetam 1,000 MG in 0.9 % Sodium Chloride 100 ML IVPB SCH ×2 (08:43→20:24)
[2021-04-11] MEDS: QUEtiapine Fumarate 25 MG TABLET GTUBE SCH ×2 (08:43→20:20)
[2021-04-11] MEDS ORDERED: Ringers Solution, Lactated 500 ML ONE (23:38)
[2021-04-11] MEDS ORDERED: Ringers Solution, Lactated 500 ML IVC ONE (23:48)
[2021-04-12] MEDS: FentaNYL (PF) 1,000 MCG/100 ML IV.SOLN IVC SCH ×3 (02:31→17:48)
[2021-04-12] MEDS: Ipratropium/Albuterol Neb 3 ML IH SCH ×6 (03:22→23:18)
[2021-04-12] MEDS: Artificial Tears SOLN 15 ML BOTTLE BOTH EYES SCH ×6 (03:35→23:29)
[2021-04-12 04:39] LABS: ABG Base Excess 6 mEq/L (-2 to 3); ABG HCO3 34 mEq/L (21-27); ABG Oxygen Saturation 90 % (95-98); ABG PCO2 62 mmHg (35-45); ABG PH 7.35 pH Units (7.32-7.45); ABG PO2 63 mmHg (85-104); ABG TCO2 36 mEq/L (20-26); Blood Gas Modality ASSIST CONTROL; Blood Gas VT 450 cc
[2021-04-12] MEDS: Dexmedetomidine HCl 400 MCG/100 ML MLS IVC SCH ×5 (05:10→23:28)
[2021-04-12] MEDS: *HR* Heparin 5,000 UNIT/ML VIAL SQ SCH ×2 (05:11→17:09)
[2021-04-12 05:31] LABS: VBG Ionized Calcium 1.22 mmol/L (1.15-1.35)
[2021-04-12 05:32] LABS: Basophils % 0.1 %; Eosinophils # 0.1 K/mcL (0.0-0.6); Eosinophils % 0.7 %; Hematocrit 40.4 % (37.5-50.1); Hemoglobin 12.5 g/dL (12.9-16.9); Immature Granulocytes % 0.4 % (0-4); Immature Platelets 11.5 % (1.1-6.1); Lymphocytes # 0.8 K/mcL (0.6-4.6); Lymphocytes % 9.8 %; Mean Corpuscular HGB Conc 30.9 g/dL (31.6-35.5); Mean Corpuscular Hemoglobin 33.2 pg (28.0-33.3); Mean Corpuscular Volume 107.4 fL (83.0-100.0); Mean Platelet Volume 12.4 fL (9.4-12.4); Monocytes # 0.7 K/mcL (0.0-1.3); Monocytes % 8.6 %; Neutrophils # 6.8 K/mcL (1.6-8.9); Platelet Count 114 K/mcL (140-400); Red Blood Count 3.76 M/mcL (4.19-5.50); Red Cell Distribution Width 13.2 % (11.5-14.5); Segmented Neutrophils % 80.4 %; White Blood Count 8.5 K/mcL (4.3-11.1)
[2021-04-12 05:48] LABS: BUN/Creatinine Ratio 60 (6-26); Blood Urea Nitrogen 61 mg/dL (8-23); Calcium 8.8 mg/dL (8.6-10.3); Carbon Dioxide 35 mEq/L (23-29); Chloride 105 mEq/L (98-107); Glucose 125 mg/dL (70-105); Magnesium 2.3 mg/dL (1.6-2.6); Osmolality,Calculated 313 (280-300); Phosphorous 4.1 mg/dL (2.7-4.5); Potassium 4.7 mEq/L (3.5-5.1); Sodium 142 mEq/L (136-145); eGFR For African Americans > 60 (> 60); eGFR For Non-African Americans > 60 (> 60)
[2021-04-12] MEDS: Budesonide/Formoterol 160/4.5 1 PUFF INH IH SCH ×2 (07:37→19:47)
[2021-04-12] MEDS: Pantoprazole 40 MG VIAL IVP SCH (09:03)
[2021-04-12] MEDS: Thiamine (B-1) 100 MG TABLET GTUBE SCH ×3 (09:03→20:38)
[2021-04-12] MEDS: Chlorhexidine Rinse 15 ML MOUTHWASH MM SCH ×2 (09:03→20:38)
[2021-04-12] MEDS: Docusate Oral Soln 100 MG/10 ML UDC GTUBE SCH ×2 (09:03→20:38)
[2021-04-12] MEDS: Aspirin 81 MG TAB.CHEW PO SCH (09:03)
[2021-04-12] MEDS: Folic Acid 1 MG TABLET PO SCH (09:03)
[2021-04-12] MEDS: QUEtiapine Fumarate 25 MG TABLET GTUBE SCH ×2 (09:03→20:38)
[2021-04-12] MEDS: MethylPREDNISolone 40 MG/ML VIAL IVP SCH (09:04)
[2021-04-12] MEDS: levETIRAcetam 1,000 MG in 0.9 % Sodium Chloride 100 ML IVPB SCH ×2 (09:04→20:38)
[2021-04-12] MEDS: Midazolam HCl 50 MG/100 ML IV.SOLN IVC SCH (14:20)
[2021-04-12] MEDS: Bisacodyl 10 MG RECTAL SUPPOSITORY RC SCH (14:28)
[2021-04-12 19:20] LABS: BUN/Creatinine Ratio 64 (6-26); Blood Urea Nitrogen 51 mg/dL (8-23); Calcium 8.7 mg/dL (8.6-10.3); Carbon Dioxide 33 mEq/L (23-29); Chloride 107 mEq/L (98-107); Glucose 129 mg/dL (70-105); Osmolality,Calculated 309 (280-300); Potassium 5.5 mEq/L (3.5-5.1); Sodium 142 mEq/L (136-145); eGFR For African Americans > 60 (> 60); eGFR For Non-African Americans > 60 (> 60)
[2021-04-13] MEDS: FentaNYL (PF) 1,000 MCG/100 ML IV.SOLN IVC SCH ×3 (02:30→20:35)
[2021-04-13] MEDS: Ipratropium/Albuterol Neb 3 ML IH SCH ×6 (03:15→23:35)
[2021-04-13 03:48] LABS: ABG Base Excess 11 mEq/L (-2 to 3); ABG HCO3 39 mEq/L (21-27); ABG Oxygen Saturation 95 % (95-98); ABG PCO2 73 mmHg (35-45); ABG PH 7.34 pH Units (7.32-7.45); ABG PO2 82 mmHg (85-104); ABG TCO2 41 mEq/L (20-26); Blood Gas Modality AF; Blood Gas VT 450 cc
[2021-04-13 04:16] LABS: Eosinophils # 0.1 K/mcL (0.0-0.6); Eosinophils % 1.4 %; Hematocrit 39.8 % (37.5-50.1); Hemoglobin 12.2 g/dL (12.9-16.9); Immature Granulocytes % 0.4 % (0-4); Lymphocytes # 0.7 K/mcL (0.6-4.6); Mean Corpuscular HGB Conc 30.7 g/dL (31.6-35.5); Mean Corpuscular Hemoglobin 33.3 pg (28.0-33.3); Mean Corpuscular Volume 108.7 fL (83.0-100.0); Mean Platelet Volume 12.8 fL (9.4-12.4); Monocytes # 0.6 K/mcL (0.0-1.3); Monocytes % 7.9 %; Neutrophils # 6.4 K/mcL (1.6-8.9); Platelet Count 107 K/mcL (140-400); Red Blood Count 3.66 M/mcL (4.19-5.50); Segmented Neutrophils % 81.3 %; White Blood Count 7.9 K/mcL (4.3-11.1)
[2021-04-13 04:21] LABS: VBG Ionized Calcium 1.23 mmol/L (1.15-1.35)
[2021-04-13 04:29] LABS: Alanine Aminotransferase 15 Units/L (7-52); Albumin 2.9 g/dL (3.5-5.7); Albumin/Globulin Ratio 1.1 (1.1-2.2); Alkaline Phosphatase 62 Units/L (34-104); Aspartate Amino Transferase 14 Units/L (13-39); BUN/Creatinine Ratio 59 (6-26); Bilirubin,Direct 0.1 mg/dL (0.0-0.2); Bilirubin,Indirect 0.3 mg/dL (0.0-1.0); Bilirubin,Total 0.4 mg/dL (0.3-1.0); Blood Urea Nitrogen 44 mg/dL (8-23); Calcium 8.7 mg/dL (8.6-10.3); Carbon Dioxide 35 mEq/L (23-29); Chloride 107 mEq/L (98-107); Globulin 2.6 g/dL (2.4-3.5); Glucose 130 mg/dL (70-105); Osmolality,Calculated 309 (280-300); Phosphorous 3.5 mg/dL (2.7-4.5); Potassium 4.7 mEq/L (3.5-5.1); Sodium 143 mEq/L (136-145); Total Protein 5.5 g/dL (6.4-8.9); eGFR For African Americans > 60 (> 60); eGFR For Non-African Americans > 60 (> 60)
[2021-04-13] MEDS: Artificial Tears SOLN 15 ML BOTTLE BOTH EYES SCH ×5 (04:33→20:16)
[2021-04-13] MEDS: Midazolam HCl 50 MG/100 ML IV.SOLN IVC SCH (04:40)
[2021-04-13] MEDS: Dexmedetomidine HCl 400 MCG/100 ML MLS IVC SCH ×4 (04:40→20:34)
[2021-04-13] MEDS: *HR* Heparin 5,000 UNIT/ML VIAL SQ SCH ×2 (05:14→17:17)
[2021-04-13] MEDS: Budesonide/Formoterol 160/4.5 1 PUFF INH IH SCH ×2 (07:42→20:09)
[2021-04-13] MEDS: Docusate Oral Soln 100 MG/10 ML UDC GTUBE SCH ×2 (10:00→20:26)
[2021-04-13] MEDS: Aspirin 81 MG TAB.CHEW PO SCH (10:00)
[2021-04-13] MEDS: Folic Acid 1 MG TABLET PO SCH (10:00)
[2021-04-13] MEDS: QUEtiapine Fumarate 25 MG TABLET GTUBE SCH ×2 (10:01→20:26)
[2021-04-13] MEDS: predniSONE 10 MG TABLET PO SCH (10:01)
[2021-04-13] MEDS: Thiamine (B-1) 100 MG TABLET GTUBE SCH ×3 (10:01→20:26)
[2021-04-13] MEDS: Pantoprazole 40 MG VIAL IVP SCH (10:01)
[2021-04-13] MEDS: Chlorhexidine Rinse 15 ML MOUTHWASH MM SCH ×2 (10:01→20:26)
[2021-04-13] MEDS: levETIRAcetam 1,000 MG in 0.9 % Sodium Chloride 100 ML IVPB SCH ×2 (10:02→22:09)
[2021-04-13] MEDS: Furosemide 40 MG/4 ML VIAL IVP ONE (10:02)
[2021-04-13] MEDS: *HR* LORazepam 2 MG/ML VIAL IVP PRN ×5 (12:55→20:37)
[2021-04-13] MEDS: Bisacodyl 10 MG RECTAL SUPPOSITORY RC SCH (16:16)
[2021-04-14] MEDS: *HR* LORazepam 2 MG/ML VIAL IVP PRN ×2 (00:59→02:01)
[2021-04-14] MEDS: Artificial Tears SOLN 15 ML BOTTLE BOTH EYES SCH ×3 (01:02→09:57)
[2021-04-14] MEDS: Dexmedetomidine HCl 400 MCG/100 ML MLS IVC SCH ×5 (01:59→20:39)
[2021-04-14] MEDS: Ipratropium/Albuterol Neb 3 ML IH SCH ×6 (03:26→23:17)
[2021-04-14 03:48] LABS: ABG Base Excess 7 mEq/L (-2 to 3); ABG HCO3 34 mEq/L (21-27); ABG Oxygen Saturation 95 % (95-98); ABG PCO2 58 mmHg (35-45); ABG PH 7.38 pH Units (7.32-7.45); ABG PO2 81 mmHg (85-104); ABG TCO2 36 mEq/L (20-26)
[2021-04-14 06:05] LABS: Basophils % 0.1 %; Eosinophils # 0.1 K/mcL (0.0-0.6); Hematocrit 45.2 % (37.5-50.1); Immature Granulocytes % 0.3 % (0-4); Lymphocytes # 0.9 K/mcL (0.6-4.6); Lymphocytes % 9.2 %; Mean Corpuscular HGB Conc 32.5 g/dL (31.6-35.5); Mean Corpuscular Hemoglobin 33.9 pg (28.0-33.3); Mean Corpuscular Volume 104.4 fL (83.0-100.0); Mean Platelet Volume 12.6 fL (9.4-12.4); Monocytes # 0.8 K/mcL (0.0-1.3); Monocytes % 8.6 %; Neutrophils # 7.6 K/mcL (1.6-8.9); Platelet Count 109 K/mcL (140-400); Red Blood Count 4.33 M/mcL (4.19-5.50); Red Cell Distribution Width 12.3 % (11.5-14.5); Segmented Neutrophils % 80.8 %; White Blood Count 9.3 K/mcL (4.3-11.1)
[2021-04-14 06:07] LABS: Hemoglobin 14.7 g/dL (12.9-16.9)
[2021-04-14] MEDS: *HR* Heparin 5,000 UNIT/ML VIAL SQ SCH ×2 (06:26→18:16)
[2021-04-14 06:35] LABS: Alanine Aminotransferase 20 Units/L (7-52); Albumin 3.4 g/dL (3.5-5.7); Albumin/Globulin Ratio 1.2 (1.1-2.2); Alkaline Phosphatase 73 Units/L (34-104); Aspartate Amino Transferase 25 Units/L (13-39); BUN/Creatinine Ratio 51 (6-26); Bilirubin,Total 1.1 mg/dL (0.3-1.0); Blood Urea Nitrogen 35 mg/dL (8-23); Calcium 9.7 mg/dL (8.6-10.3); Carbon Dioxide 36 mEq/L (23-29); Chloride 101 mEq/L (98-107); Globulin 2.8 g/dL (2.4-3.5); Glucose 86 mg/dL (70-105); Magnesium 1.7 mg/dL (1.6-2.6); Osmolality,Calculated 303 (280-300); Potassium 4.4 mEq/L (3.5-5.1); Sodium 143 mEq/L (136-145); Total Protein 6.2 g/dL (6.4-8.9); eGFR For African Americans > 60 (> 60); eGFR For Non-African Americans > 60 (> 60)
[2021-04-14] MEDS: FentaNYL (PF) 1,000 MCG/100 ML IV.SOLN IVC SCH (06:42)
[2021-04-14] MEDS ORDERED: *HR* Dextrose 50 % in Water (Vial) 50 ML VIAL ONE (07:34)
[2021-04-14] MEDS ORDERED: *HR* Dextrose 50 % in Water (Vial) 50 ML VIAL IVP ONE (07:35)
[2021-04-14] MEDS ORDERED: Furosemide 40 MG/4 ML VIAL IVP ONE (07:48)
[2021-04-14] MEDS: Budesonide/Formoterol 160/4.5 1 PUFF INH IH SCH ×2 (07:58→19:47)
[2021-04-14] MEDS: Folic Acid 1 MG TABLET PO SCH (09:55)
[2021-04-14] MEDS: Chlorhexidine Rinse 15 ML MOUTHWASH MM SCH (09:55)
[2021-04-14] MEDS: Furosemide 40 MG/4 ML VIAL IVP ONE (09:55)
[2021-04-14] MEDS: Aspirin 81 MG TAB.CHEW PO SCH (09:55)
[2021-04-14] MEDS: Pantoprazole 40 MG VIAL IVP SCH (09:55)
[2021-04-14] MEDS: Thiamine (B-1) 100 MG TABLET GTUBE SCH (09:56)
[2021-04-14] MEDS: levETIRAcetam 1,000 MG in 0.9 % Sodium Chloride 100 ML IVPB SCH ×2 (09:56→21:08)
[2021-04-14] MEDS: predniSONE 10 MG TABLET PO SCH (09:56)
[2021-04-14] MEDS: QUEtiapine Fumarate 25 MG TABLET GTUBE SCH (09:56)
[2021-04-14] MEDS ORDERED: Nicotine 2 MG GUM BC PRN (11:42)
[2021-04-14] MEDS ORDERED: *HR* LORazepam 2 MG/ML VIAL IVP PRN (11:43)
[2021-04-14] MEDS: Thiamine (B-1) 100 MG TABLET PO SCH ×2 (15:18→20:38)
[2021-04-14] MEDS: Bisacodyl 10 MG RECTAL SUPPOSITORY RC SCH (15:18)
[2021-04-14] MEDS: Docusate Oral Soln 100 MG/10 ML UDC PO SCH (20:37)
[2021-04-14] MEDS: QUEtiapine Fumarate 25 MG TABLET PO SCH (20:38)
[2021-04-15] MEDS: Dexmedetomidine HCl 400 MCG/100 ML MLS IVC SCH ×4 (01:55→23:13)
[2021-04-15] MEDS: Ipratropium/Albuterol Neb 3 ML IH SCH ×6 (03:39→23:13)
[2021-04-15 05:43] LABS: ABG Base Excess 9 mEq/L (-2 to 3); ABG HCO3 34 mEq/L (21-27); ABG Oxygen Saturation 93 % (95-98); ABG PCO2 45 mmHg (35-45); ABG PH 7.49 pH Units (7.32-7.45); ABG PO2 61 mmHg (85-104); ABG TCO2 35 mEq/L (20-26)
[2021-04-15] MEDS: *HR* Heparin 5,000 UNIT/ML VIAL SQ SCH ×2 (06:10→17:45)
[2021-04-15] MEDS: Docusate Oral Soln 100 MG/10 ML UDC PO SCH ×2 (07:41→19:53)
[2021-04-15] MEDS: Aspirin 81 MG TAB.CHEW PO SCH (07:41)
[2021-04-15 07:42] LABS: VBG Ionized Calcium 1.04 mmol/L (1.15-1.35)
[2021-04-15] MEDS: QUEtiapine Fumarate 25 MG TABLET PO SCH ×2 (07:42→19:54)
[2021-04-15] MEDS: predniSONE 10 MG TABLET PO SCH (07:42)
[2021-04-15] MEDS: Thiamine (B-1) 100 MG TABLET PO SCH ×3 (07:42→19:54)
[2021-04-15] MEDS: Folic Acid 1 MG TABLET PO SCH (07:42)
[2021-04-15] MEDS: levETIRAcetam 1,000 MG in 0.9 % Sodium Chloride 100 ML IVPB SCH ×2 (07:47→19:53)
[2021-04-15] MEDS: Budesonide/Formoterol 160/4.5 1 PUFF INH IH SCH ×2 (07:49→19:35)
[2021-04-15 07:52] LABS: Basophils % 0.4 %; Eosinophils # 0.1 K/mcL (0.0-0.6); Eosinophils % 0.8 %; Hematocrit 45.5 % (37.5-50.1); Hemoglobin 14.8 g/dL (12.9-16.9); Immature Granulocytes % 0.4 % (0-4); Lymphocytes # 0.8 K/mcL (0.6-4.6); Lymphocytes % 7.3 %; Mean Corpuscular HGB Conc 32.5 g/dL (31.6-35.5); Mean Corpuscular Hemoglobin 33.3 pg (28.0-33.3); Mean Corpuscular Volume 102.2 fL (83.0-100.0); Mean Platelet Volume 12.7 fL (9.4-12.4); Monocytes # 0.9 K/mcL (0.0-1.3); Monocytes % 8.2 %; Neutrophils # 8.9 K/mcL (1.6-8.9); Platelet Count 125 K/mcL (140-400); Red Blood Count 4.45 M/mcL (4.19-5.50); Red Cell Distribution Width 12.2 % (11.5-14.5); Segmented Neutrophils % 82.9 %; White Blood Count 10.7 K/mcL (4.3-11.1)
[2021-04-15] MEDS ORDERED: Vancomycin 1,250 MG/262.5 ML IV.SOLN IVPB SCH (08:00)
[2021-04-15 09:34] LABS: Alanine Aminotransferase 22 Units/L (7-52); Albumin 3.3 g/dL (3.5-5.7); Albumin/Globulin Ratio 1.2 (1.1-2.2); Alkaline Phosphatase 67 Units/L (34-104); Aspartate Amino Transferase 26 Units/L (13-39); BUN/Creatinine Ratio 43 (6-26); Blood Urea Nitrogen 33 mg/dL (8-23); Calcium 9.3 mg/dL (8.6-10.3); Carbon Dioxide 32 mEq/L (23-29); Chloride 95 mEq/L (98-107); Globulin 2.7 g/dL (2.4-3.5); Glucose 122 mg/dL (70-105); Magnesium 1.6 mg/dL (1.6-2.6); Osmolality,Calculated 289 (280-300); Phosphorous 3.4 mg/dL (2.7-4.5); Sodium 135 mEq/L (136-145); eGFR For African Americans > 60 (> 60); eGFR For Non-African Americans > 60 (> 60)
[2021-04-15] MEDS ORDERED: *HR* LORazepam 2 MG/ML VIAL IVP PRN (12:12)
[2021-04-15] MEDS ORDERED: Naloxone 0.4 MG/ML INJ IVP PRN (12:12)
[2021-04-15] MEDS ORDERED: Nicotine 2 MG GUM BC PRN (12:12)
[2021-04-15] MEDS ORDERED: Ondansetron ODT 4 MG TAB.RAPDIS SL PRN (12:12)
[2021-04-15] MEDS: Bisacodyl 10 MG RECTAL SUPPOSITORY RC SCH (12:46)
[2021-04-15] MEDS: Vancomycin 1,250 MG/262.5 ML IV.SOLN IVPB SCH (20:18)
[2021-04-16] MEDS: Ipratropium/Albuterol Neb 3 ML IH SCH ×6 (03:39→23:42)
[2021-04-16] MEDS: *HR* Heparin 5,000 UNIT/ML VIAL SQ SCH ×2 (05:10→18:03)
[2021-04-16 05:40] LABS: VBG Ionized Calcium 1.16 mmol/L (1.15-1.35)
[2021-04-16 05:42] LABS: Basophils % 0.2 %; Eosinophils # 0.1 K/mcL (0.0-0.6); Eosinophils % 1.1 %; Hematocrit 40.1 % (37.5-50.1); Hemoglobin 12.9 g/dL (12.9-16.9); Immature Granulocytes % 0.4 % (0-4); Lymphocytes # 0.5 K/mcL (0.6-4.6); Lymphocytes % 4.6 %; Mean Corpuscular HGB Conc 32.2 g/dL (31.6-35.5); Mean Corpuscular Hemoglobin 32.8 pg (28.0-33.3); Mean Platelet Volume 12.5 fL (9.4-12.4); Monocytes # 0.8 K/mcL (0.0-1.3); Monocytes % 6.8 %; Neutrophils # 9.7 K/mcL (1.6-8.9); Platelet Count 125 K/mcL (140-400); Red Blood Count 3.93 M/mcL (4.19-5.50); Red Cell Distribution Width 12.1 % (11.5-14.5); Segmented Neutrophils % 86.9 %; White Blood Count 11.2 K/mcL (4.3-11.1)
[2021-04-16 06:02] LABS: Alanine Aminotransferase 22 Units/L (7-52); Albumin 3.2 g/dL (3.5-5.7); Albumin/Globulin Ratio 1.2 (1.1-2.2); Alkaline Phosphatase 64 Units/L (34-104); Aspartate Amino Transferase 20 Units/L (13-39); BUN/Creatinine Ratio 37 (6-26); Bilirubin,Total 1.1 mg/dL (0.3-1.0); Blood Urea Nitrogen 30 mg/dL (8-23); Carbon Dioxide 35 mEq/L (23-29); Chloride 98 mEq/L (98-107); Globulin 2.6 g/dL (2.4-3.5); Glucose 102 mg/dL (70-105); Magnesium 1.7 mg/dL (1.6-2.6); Osmolality,Calculated 290 (280-300); Phosphorous 2.9 mg/dL (2.7-4.5); Potassium 3.6 mEq/L (3.5-5.1); Sodium 137 mEq/L (136-145); Total Protein 5.8 g/dL (6.4-8.9); eGFR For African Americans > 60 (> 60); eGFR For Non-African Americans > 60 (> 60)
[2021-04-16] MEDS ORDERED: predniSONE 10 MG TABLET PO SCH (09:00)
[2021-04-16] MEDS: QUEtiapine Fumarate 25 MG TABLET PO SCH ×2 (09:02→21:12)
[2021-04-16] MEDS: Aspirin 81 MG TAB.CHEW PO SCH (09:02)
[2021-04-16] MEDS: Docusate Oral Soln 100 MG/10 ML UDC PO SCH ×2 (09:02→21:11)
[2021-04-16] MEDS: Folic Acid 1 MG TABLET PO SCH (09:02)
[2021-04-16] MEDS: Thiamine (B-1) 100 MG TABLET PO SCH ×3 (09:02→21:11)
[2021-04-16] MEDS: levETIRAcetam 1,000 MG in 0.9 % Sodium Chloride 100 ML IVPB SCH (10:00)
[2021-04-16] MEDS: Vancomycin 1,250 MG/262.5 ML IV.SOLN IVPB SCH ×2 (10:49→21:28)
[2021-04-16] MEDS: Budesonide/Formoterol 160/4.5 1 PUFF INH IH SCH ×2 (11:04→20:03)
[2021-04-16] MEDS: Bisacodyl 10 MG RECTAL SUPPOSITORY RC SCH (14:42)
[2021-04-16] MEDS: levETIRAcetam 250 MG TABLET PO SCH (21:12)
[2021-04-17] MEDS: Ipratropium/Albuterol Neb 3 ML IH SCH ×3 (04:06→11:26)
[2021-04-17 04:26] LABS: VBG Ionized Calcium 1.21 mmol/L (1.15-1.35)
[2021-04-17 04:27] LABS: Basophils % 0.3 %; Eosinophils # 0.1 K/mcL (0.0-0.6); Eosinophils % 1.6 %; Immature Granulocytes % 0.3 % (0-4); Lymphocytes # 0.6 K/mcL (0.6-4.6); Lymphocytes % 6.9 %; Mean Corpuscular HGB Conc 31.7 g/dL (31.6-35.5); Mean Corpuscular Volume 104.1 fL (83.0-100.0); Mean Platelet Volume 12.5 fL (9.4-12.4); Monocytes # 0.6 K/mcL (0.0-1.3); Monocytes % 6.3 %; Neutrophils # 7.4 K/mcL (1.6-8.9); Platelet Count 130 K/mcL (140-400); Red Blood Count 3.94 M/mcL (4.19-5.50); Red Cell Distribution Width 12.2 % (11.5-14.5); Segmented Neutrophils % 84.6 %; White Blood Count 8.7 K/mcL (4.3-11.1)
[2021-04-17 04:45] LABS: Alanine Aminotransferase 22 Units/L (7-52); Albumin 3.3 g/dL (3.5-5.7); Albumin/Globulin Ratio 1.1 (1.1-2.2); Alkaline Phosphatase 65 Units/L (34-104); Aspartate Amino Transferase 20 Units/L (13-39); BUN/Creatinine Ratio 28 (6-26); Bilirubin,Total 0.8 mg/dL (0.3-1.0); Blood Urea Nitrogen 24 mg/dL (8-23); Calcium 9.2 mg/dL (8.6-10.3); Carbon Dioxide 34 mEq/L (23-29); Chloride 101 mEq/L (98-107); Glucose 93 mg/dL (70-105); Magnesium 1.7 mg/dL (1.6-2.6); Osmolality,Calculated 294 (280-300); Phosphorous 2.7 mg/dL (2.7-4.5); Potassium 3.2 mEq/L (3.5-5.1); Sodium 140 mEq/L (136-145); Total Protein 6.3 g/dL (6.4-8.9); eGFR For African Americans > 60 (> 60); eGFR For Non-African Americans > 60 (> 60)
[2021-04-17] MEDS: *HR* Heparin 5,000 UNIT/ML VIAL SQ SCH (05:54)
[2021-04-17 07:25] VITALS: BP 142/85
[2021-04-17] MEDS: Aspirin 81 MG TAB.CHEW PO SCH (07:47)
[2021-04-17] MEDS: Docusate Oral Soln 100 MG/10 ML UDC PO SCH (07:47)
[2021-04-17] MEDS: QUEtiapine Fumarate 25 MG TABLET PO SCH (07:48)
[2021-04-17] MEDS: Folic Acid 1 MG TABLET PO SCH (07:48)
[2021-04-17] MEDS: Thiamine (B-1) 100 MG TABLET PO SCH (07:48)
[2021-04-17] MEDS: levETIRAcetam 250 MG TABLET PO SCH (07:48)
[2021-04-17] MEDS: Vancomycin 1,250 MG/262.5 ML IV.SOLN IVPB SCH (07:49)
[2021-04-17] MEDS: Budesonide/Formoterol 160/4.5 1 PUFF INH IH SCH (07:51)
[2021-04-17] MEDS ORDERED: Doxycycline 100 MG CAPSULE PO SCH (09:15)
[2021-04-17 10:24] LABS: Bacteria,Urine Few per hpf (None-Few); Bilirubin,Urine Negative (Negative); Blood,Urine Large (Negative); Clarity,Urine Turbid (Clear); Color,Urine Light-Orange (Yellow); Glucose,Urine (UA) Normal (Normal); Ketones,Urine Negative (Negative); Leukocyte Esterase,Urine Moderate (Negative); Mucus,Urine Few per lpf (None-Few); Nitrite,Urine Negative (Negative); Protein,Urine 100 mg/dL (Neg-Trace); RBC,Urine TNTC per hpf (0-3); Specific Gravity,Urine 1.025 (1.010-1.025); Urobilinogen,Urine Normal (Normal)
[2021-04-17] MEDS ORDERED: Furosemide 40 MG TABLET PO SCH (17:00)
[2021-04-18] MEDS ORDERED: lisinopriL 20 MG TABLET PO SCH (09:00)
== END 2021-04-17 14:13 | disposition home or self-care (01) | DRG 207 ==
LOC: 2ANU → 2NNU 04-01 08:17 → ICNU 04-01 18:57 → SUATTDRO 04-02 09:08 → 2NNU 04-15 13:54 → 3ANU 04-16 17:09
PROVIDERS: ADMIT Internal Medicine; ATTEND Family Medicine

== ENCOUNTER 2021-05-17 13:08 | Inpatient (IN) ==
[2021-05-17 17:02] LABS: Basophils % 0.5 %; Eosinophils # 0.2 K/mcL (0.0-0.6); Eosinophils % 2.9 %; Hematocrit 38.7 % (37.5-50.1); Hemoglobin 12.7 g/dL (12.9-16.9); Immature Granulocytes % 0.4 % (0-4); Lymphocytes # 1.1 K/mcL (0.6-4.6); Lymphocytes % 15.1 %; Mean Corpuscular HGB Conc 32.8 g/dL (31.6-35.5); Mean Corpuscular Hemoglobin 33.3 pg (28.0-33.3); Mean Corpuscular Volume 101.6 fL (83.0-100.0); Mean Platelet Volume 9.8 fL (9.4-12.4); Monocytes # 0.9 K/mcL (0.0-1.3); Monocytes % 11.8 %; Neutrophils # 5.2 K/mcL (1.6-8.9); Platelet Count 252 K/mcL (140-400); Red Blood Count 3.81 M/mcL (4.19-5.50); Red Cell Distribution Width 12.4 % (11.5-14.5); Segmented Neutrophils % 69.3 %; White Blood Count 7.5 K/mcL (4.3-11.1)
[2021-05-17 17:07] LABS: Prothrombin Time 11.2 Seconds (9.4-12.1)
[2021-05-17 17:22] LABS: BUN/Creatinine Ratio 12 (6-26); Blood Urea Nitrogen 14 mg/dL (8-23); Calcium 8.6 mg/dL (8.6-10.3); Carbon Dioxide 34 mEq/L (23-29); Chloride 98 mEq/L (98-107); Glucose 75 mg/dL (70-105); Osmolality,Calculated 287 (280-300); Potassium 3.1 mEq/L (3.5-5.1); Sodium 139 mEq/L (136-145); eGFR For African Americans > 60 (> 60); eGFR For Non-African Americans > 60 (> 60)
[2021-05-17 17:37] LABS: Bilirubin,Urine Negative (Negative); Blood,Urine Large (Negative); Clarity,Urine Turbid (Clear); Color,Urine Red (Yellow); Glucose,Urine (UA) Normal (Normal); Ketones,Urine Negative (Negative); Leukocyte Esterase,Urine Small (Negative); Nitrite,Urine Negative (Negative); Protein,Urine 70 mg/dL (Neg-Trace); Specific Gravity,Urine 1.015 (1.010-1.025); Urobilinogen,Urine Normal (Normal)
[2021-05-17] MEDS ORDERED: Potassium Chloride 40 MEQ, Lidocaine 1% 2 ML in 0.9 % Sodium Chloride 500 ML IVPB ONE (17:51)
[2021-05-17] MEDS ORDERED: Perflutren Lipid Microsphere 1.3 ML in 0.9 % Sodium Chloride 8.7 ML IVP PRN (19:38)
[2021-05-17] MEDS ORDERED: Ondansetron 4 MG/2 ML VIAL IVP PRN (21:19)
[2021-05-17] MEDS ORDERED: Naloxone 0.4 MG/ML INJ IVP PRN (21:19)
[2021-05-17] MEDS ORDERED: Acetaminophen 325 MG TABLET PO PRN (21:19)
[2021-05-17] MEDS ORDERED: *HR* LORazepam 2 MG/ML VIAL IVP PRN ×2 (21:27)
[2021-05-17 22:13] LABS: Amylase 45 Units/L (29-103); Ethanol < 10 mg/dL (Less than 10); Lipase 31 Units/L (11-82)
[2021-05-17 22:37] LABS: Amphetamine Screen,Urine Negative ng/mL (Cutoff=1000); Barbiturate Screen,Urine Negative ng/mL (Cutoff=200); Benzodiazepines Screen,Urine Negative ng/mL (Cutoff=200); Cannabinoid Screen,Urine Positive ng/mL (Cutoff = 50); Cocaine Screen,Urine Negative ng/mL (Cutoff= 300); Opiate Screen,Urine Negative ng/mL (Cutoff=300); Phencyclidine Screen,Urine Negative ng/mL (Cutoff=25)
[2021-05-18] MEDS ORDERED: Levalbuterol Neb 1.25 MG/3 ML IH ONE (00:17)
[2021-05-18 04:03] LABS: Hematocrit 33.2 % (37.5-50.1); Mean Corpuscular HGB Conc 33.4 g/dL (31.6-35.5); Mean Corpuscular Hemoglobin 33.8 pg (28.0-33.3); Mean Corpuscular Volume 101.2 fL (83.0-100.0); Mean Platelet Volume 9.8 fL (9.4-12.4); Platelet Count 224 K/mcL (140-400); Red Blood Count 3.28 M/mcL (4.19-5.50); Red Cell Distribution Width 12.4 % (11.5-14.5); White Blood Count 5.7 K/mcL (4.3-11.1)
[2021-05-18 04:04] LABS: Hemoglobin 11.1 g/dL (12.9-16.9)
[2021-05-18 04:11] LABS: Prothrombin Time 11.7 Seconds (9.4-12.1)
[2021-05-18 04:13] LABS: Activated Partial Thrombo Time 26.5 Seconds (26.0-36.0)
[2021-05-18 04:23] LABS: BUN/Creatinine Ratio 14 (6-26); Blood Urea Nitrogen 13 mg/dL (8-23); Calcium 8.1 mg/dL (8.6-10.3); Carbon Dioxide 32 mEq/L (23-29); Chloride 102 mEq/L (98-107); Chol/HDL Ratio 3.4 (0-4.9); Cholesterol 128 mg/dL (< 200); Glucose 102 mg/dL (70-105); HDL Cholesterol 38 mg/dL (40-59); LDL Cholesterol,Calculated 76 mg/dL (< 100); Magnesium 2.1 mg/dL (1.6-2.6); Osmolality,Calculated 288 (280-300); Potassium 3.2 mEq/L (3.5-5.1); Sodium 139 mEq/L (136-145); Triglycerides 70 mg/dL (< 150); eGFR For African Americans > 60 (> 60); eGFR For Non-African Americans > 60 (> 60)
[2021-05-18 04:25] LABS: % Iron Saturation 27 % (20-55); Iron 61 mcg/dL (65-175); Transferrin 164 mg/dL (203-362)
[2021-05-18 04:43] LABS: Ferritin 168 ng/mL (20-250)
[2021-05-18 04:49] LABS: Folate 19.3 ng/mL (3.0-16.0)
[2021-05-18] MEDS: levETIRAcetam 250 MG TABLET PO SCH (07:49)
[2021-05-18] MEDS ORDERED: Potassium Chloride 40 MEQ, Lidocaine 1% 2 ML in 0.9 % Sodium Chloride 500 ML IVPB ONE (08:08)
[2021-05-18] MEDS ORDERED: Perflutren Lipid Microsphere 1.3 ML in 0.9 % Sodium Chloride 8.7 ML IVP PRN (08:27)
[2021-05-18] MEDS ORDERED: Artificial Tears SOLN 15 ML BOTTLE BOTH EYES PRN (12:27)
[2021-05-18] MEDS: Metoprolol XL (24 HR) Succ 50 MG TAB.ER.24H PO SCH (13:35)
[2021-05-18] MEDS: Saliva Stimulant 44.3ml BOTTLE PO PRN ×2 (13:35→17:20)
[2021-05-18] MEDS: Budesonide/Formoterol 160/4.5 1 PUFF INH IH SCH (22:35)
[2021-05-19 02:49] LABS: Hematocrit 33.7 % (37.5-50.1); Hemoglobin 10.7 g/dL (12.9-16.9); Mean Corpuscular HGB Conc 31.8 g/dL (31.6-35.5); Mean Corpuscular Hemoglobin 32.9 pg (28.0-33.3); Mean Corpuscular Volume 103.7 fL (83.0-100.0); Mean Platelet Volume 9.9 fL (9.4-12.4); Platelet Count 226 K/mcL (140-400); Red Blood Count 3.25 M/mcL (4.19-5.50); Red Cell Distribution Width 12.4 % (11.5-14.5); White Blood Count 7.4 K/mcL (4.3-11.1)
[2021-05-19 03:03] LABS: BUN/Creatinine Ratio 13 (6-26); Blood Urea Nitrogen 11 mg/dL (8-23); Calcium 8.2 mg/dL (8.6-10.3); Carbon Dioxide 26 mEq/L (23-29); Chloride 104 mEq/L (98-107); Glucose 91 mg/dL (70-105); Osmolality,Calculated 281 (280-300); Sodium 136 mEq/L (136-145); eGFR For African Americans > 60 (> 60); eGFR For Non-African Americans > 60 (> 60)
[2021-05-19] MEDS: Saliva Stimulant 44.3ml BOTTLE PO PRN (06:54)
[2021-05-19] MEDS ORDERED: *HR* Rocuronium Bromide 50 MG/5 ML VIAL ONE (07:23)
[2021-05-19] MEDS ORDERED: *HR* FentaNYL (PF) 100 MCG/2 ML VIAL ONE (07:23)
[2021-05-19] MEDS ORDERED: *HR* Propofol 200 MG/20 ML VIAL IVP ONE (07:23)
[2021-05-19] MEDS ORDERED: *HR* Succinylcholine 200 MG/10 ML VIAL IVP ONE (07:23)
[2021-05-19] MEDS ORDERED: Ondansetron 4 MG/2 ML VIAL ONE (07:23)
[2021-05-19] MEDS ORDERED: Lidocaine HCL 4 ML Topical Solution (Laryng-O-Jet Kit Sterile Pak) TP ONE (07:23)
[2021-05-19] MEDS ORDERED: Lidocaine -MPF 2% 2 ML VIAL ONE ×2 (07:23→09:44)
[2021-05-19] MEDS ORDERED: *HR* Etomidate 40 MG/20 ML VIAL IVP ONE (07:27)
[2021-05-19] MEDS ORDERED: Albumin Human 5% 12.5 GM/250 ML IV.SOLN ONE (07:33)
[2021-05-19] MEDS ORDERED: NiCARdipine 2.5 MG/10 ML Syringe IVPB ONE (07:34)
[2021-05-19] MEDS ORDERED: *HR* Vasopressin 20 UNIT/ML VIAL ONE (07:34)
[2021-05-19] MEDS: levETIRAcetam 250 MG TABLET PO SCH (07:48)
[2021-05-19] MEDS: Metoprolol XL (24 HR) Succ 50 MG TAB.ER.24H PO SCH (07:49)
[2021-05-19] MEDS ORDERED: cefOXitin 1,000 MG, Sodium Chloride IRRigation 1,000 ML IR ONE ×2 (08:00→13:03)
[2021-05-19] MEDS ORDERED: *HR* Midazolam HCl 2 MG/2 ML VIAL ONE (08:42)
[2021-05-19] MEDS ORDERED: CefOXitin 2,000 MG VIAL ONE (08:57)
[2021-05-19] MEDS ORDERED: *HR* HYDROMORPHONE 2 MG/ML VIAL ONE (09:27)
[2021-05-19] MEDS ORDERED: Heparin 1,000 UNITS/500 mL 500 ML ONE (09:45)
[2021-05-19] MEDS ORDERED: Tiotropium 10 INH DOSE IH SCH (10:00)
[2021-05-19] MEDS: Budesonide/Formoterol 160/4.5 1 PUFF INH IH SCH ×2 (10:16→19:52)
[2021-05-19] MEDS ORDERED: Sugammadex Sodium 200 MG/2 ML VIAL IV ONE (10:16)
[2021-05-19] MEDS ORDERED: *HR* Labetalol 20 MG/4 ML SYRINGE IVP ONE ×3 (10:32→11:50)
[2021-05-19] MEDS ORDERED: Ondansetron 4 MG/2 ML VIAL IVP PRN ×2 (10:57→13:03)
[2021-05-19] MEDS ORDERED: Promethazine 6.25 MG in Water for inj. (sterile) 20 ML IVPB PRN (10:57)
[2021-05-19] MEDS ORDERED: *HR* OxyCODONE Immed Rel 5 MG TABLET PO PRN (10:57)
[2021-05-19] MEDS: *HR* LORazepam 2 MG/ML VIAL IVP PRN ×3 (11:00→17:41)
[2021-05-19] MEDS: *HR* HYDROmorphone PF 0.5 MG/0.5 ML SYRINGE IVP PRN ×4 (11:08→11:47)
[2021-05-19] MEDS ORDERED: Ringers Solution, Lactated 1,000 ML ONE (12:18)
[2021-05-19] MEDS ORDERED: *HR* Labetalol 20 MG/4 ML SYRINGE IVP PRN (12:58)
[2021-05-19] MEDS ORDERED: Acetaminophen 325 MG TABLET PO PRN (13:03)
[2021-05-19] MEDS ORDERED: Naloxone 0.4 MG/ML INJ IVP PRN (13:03)
[2021-05-19] MEDS ORDERED: *HR* LORazepam 2 MG/ML VIAL IVP PRN ×2 (13:03)
[2021-05-19] MEDS ORDERED: Saliva Stimulant 44.3ml BOTTLE PO PRN (13:03)
[2021-05-19] MEDS ORDERED: Artificial Tears SOLN 15 ML BOTTLE BOTH EYES PRN (13:03)
[2021-05-19] MEDS ORDERED: Perflutren Lipid Microsphere 1.3 ML in 0.9 % Sodium Chloride 8.7 ML IVP PRN (13:03)
[2021-05-19] MEDS: cefOXitin 2,000 MG in 0.9 % Sodium Chloride Mini Bag 100 ML IVPB SCH (15:22)
[2021-05-19] MEDS ORDERED: Cyanocobalamin (B-12) 1,000 MCG/ML VIAL SQ ONE (16:29)
[2021-05-20] MEDS: cefOXitin 2,000 MG in 0.9 % Sodium Chloride Mini Bag 100 ML IVPB SCH (00:37)
[2021-05-20] MEDS: *HR* LORazepam 2 MG/ML VIAL IVP PRN (01:14)
[2021-05-20 06:56] LABS: BUN/Creatinine Ratio 17 (6-26); Blood Urea Nitrogen 13 mg/dL (8-23); Calcium 8.5 mg/dL (8.6-10.3); Carbon Dioxide 24 mEq/L (23-29); Chloride 95 mEq/L (98-107); Glucose 123 mg/dL (70-105); Osmolality,Calculated 269 (280-300); Potassium 4.2 mEq/L (3.5-5.1); Sodium 129 mEq/L (136-145); eGFR For African Americans > 60 (> 60); eGFR For Non-African Americans > 60 (> 60)
[2021-05-20 07:00] LABS: Basophils % 0.2 %; Eosinophils % 0.1 %; Hematocrit 37.7 % (37.5-50.1); Hemoglobin 12.5 g/dL (12.9-16.9); Immature Granulocytes % 0.2 % (0-4); Lymphocytes # 0.7 K/mcL (0.6-4.6); Lymphocytes % 5.7 %; Mean Corpuscular HGB Conc 33.2 g/dL (31.6-35.5); Mean Corpuscular Hemoglobin 33.2 pg (28.0-33.3); Mean Platelet Volume 10.2 fL (9.4-12.4); Monocytes % 8.1 %; Neutrophils # 10.8 K/mcL (1.6-8.9); Platelet Count 266 K/mcL (140-400); Red Blood Count 3.77 M/mcL (4.19-5.50); Red Cell Distribution Width 12.4 % (11.5-14.5); Segmented Neutrophils % 85.7 %; White Blood Count 12.6 K/mcL (4.3-11.1)
[2021-05-20] MEDS ORDERED: 0.9 % Sodium Chloride 1,000 ML IVC SCH (08:00)
[2021-05-20] MEDS: Metoprolol XL (24 HR) Succ 50 MG TAB.ER.24H PO SCH (10:12)
[2021-05-20] MEDS: levETIRAcetam 250 MG TABLET PO SCH (10:18)
[2021-05-20] MEDS: Tiotropium 10 INH DOSE IH SCH (10:28)
[2021-05-20] MEDS: Budesonide/Formoterol 160/4.5 1 PUFF INH IH SCH ×2 (10:28→19:50)
[2021-05-21 05:01] LABS: Basophils % 0.2 %; Eosinophils # 0.1 K/mcL (0.0-0.6); Eosinophils % 0.6 %; Hematocrit 37.8 % (37.5-50.1); Hemoglobin 12.8 g/dL (12.9-16.9); Immature Granulocytes % 0.2 % (0-4); Lymphocytes # 0.8 K/mcL (0.6-4.6); Lymphocytes % 8.2 %; Mean Corpuscular HGB Conc 33.9 g/dL (31.6-35.5); Mean Corpuscular Hemoglobin 33.7 pg (28.0-33.3); Mean Corpuscular Volume 99.5 fL (83.0-100.0); Monocytes # 0.9 K/mcL (0.0-1.3); Monocytes % 9.1 %; Neutrophils # 8.1 K/mcL (1.6-8.9); Platelet Count 227 K/mcL (140-400); Red Cell Distribution Width 12.5 % (11.5-14.5); Segmented Neutrophils % 81.7 %; White Blood Count 9.9 K/mcL (4.3-11.1)
[2021-05-21 05:16] LABS: BUN/Creatinine Ratio 14 (6-26); Blood Urea Nitrogen 11 mg/dL (8-23); Calcium 8.2 mg/dL (8.6-10.3); Carbon Dioxide 28 mEq/L (23-29); Chloride 97 mEq/L (98-107); Glucose 113 mg/dL (70-105); Osmolality,Calculated 274 (280-300); Potassium 3.3 mEq/L (3.5-5.1); Sodium 132 mEq/L (136-145); eGFR For African Americans > 60 (> 60); eGFR For Non-African Americans > 60 (> 60)
[2021-05-21] MEDS: Budesonide/Formoterol 160/4.5 1 PUFF INH IH SCH ×2 (07:49→20:16)
[2021-05-21] MEDS: Tiotropium 10 INH DOSE IH SCH (07:49)
[2021-05-21] MEDS ORDERED: Potassium Chloride Elixir 20 MEQ/15 ML UDC PO ONE (08:23)
[2021-05-21] MEDS: Metoprolol XL (24 HR) Succ 50 MG TAB.ER.24H PO SCH (08:24)
[2021-05-21] MEDS: levETIRAcetam 250 MG TABLET PO SCH (08:24)
[2021-05-22 04:45] LABS: Basophils % 0.5 %; Eosinophils # 0.3 K/mcL (0.0-0.6); Eosinophils % 3.9 %; Hematocrit 37.7 % (37.5-50.1); Hemoglobin 12.1 g/dL (12.9-16.9); Immature Granulocytes % 0.4 % (0-4); Lymphocytes % 12.9 %; Mean Corpuscular HGB Conc 32.1 g/dL (31.6-35.5); Mean Corpuscular Volume 102.7 fL (83.0-100.0); Mean Platelet Volume 10.3 fL (9.4-12.4); Monocytes # 0.7 K/mcL (0.0-1.3); Monocytes % 9.7 %; Neutrophils # 5.5 K/mcL (1.6-8.9); Platelet Count 226 K/mcL (140-400); Red Blood Count 3.67 M/mcL (4.19-5.50); Red Cell Distribution Width 12.7 % (11.5-14.5); Segmented Neutrophils % 72.6 %; White Blood Count 7.5 K/mcL (4.3-11.1)
[2021-05-22 05:03] LABS: BUN/Creatinine Ratio 15 (6-26); Blood Urea Nitrogen 14 mg/dL (8-23); Calcium 8.9 mg/dL (8.6-10.3); Carbon Dioxide 29 mEq/L (23-29); Chloride 99 mEq/L (98-107); Glucose 110 mg/dL (70-105); Osmolality,Calculated 283 (280-300); Sodium 136 mEq/L (136-145); eGFR For African Americans > 60 (> 60); eGFR For Non-African Americans > 60 (> 60)
[2021-05-22] MEDS: Tiotropium 10 INH DOSE IH SCH (07:48)
[2021-05-22] MEDS: Budesonide/Formoterol 160/4.5 1 PUFF INH IH SCH ×2 (07:48→20:29)
[2021-05-22] MEDS: levETIRAcetam 250 MG TABLET PO SCH (09:31)
[2021-05-22] MEDS: Metoprolol XL (24 HR) Succ 50 MG TAB.ER.24H PO SCH (09:31)
[2021-05-22] MEDS: polyethylene glycoL 3350 17 GM POWD.PACK PO SCH (12:57)
[2021-05-23 02:57] LABS: Basophils # 0.1 K/mcL (0.0-0.2); Basophils % 0.7 %; Eosinophils # 0.5 K/mcL (0.0-0.6); Eosinophils % 6.6 %; Hematocrit 32.8 % (37.5-50.1); Hemoglobin 10.6 g/dL (12.9-16.9); Immature Granulocytes % 0.1 % (0-4); Lymphocytes # 0.9 K/mcL (0.6-4.6); Lymphocytes % 12.2 %; Mean Corpuscular HGB Conc 32.3 g/dL (31.6-35.5); Mean Corpuscular Hemoglobin 33.4 pg (28.0-33.3); Mean Corpuscular Volume 103.5 fL (83.0-100.0); Mean Platelet Volume 10.5 fL (9.4-12.4); Monocytes # 0.7 K/mcL (0.0-1.3); Monocytes % 10.5 %; Neutrophils # 4.9 K/mcL (1.6-8.9); Platelet Count 217 K/mcL (140-400); Red Blood Count 3.17 M/mcL (4.19-5.50); Red Cell Distribution Width 12.5 % (11.5-14.5); Segmented Neutrophils % 69.9 %; White Blood Count 7.1 K/mcL (4.3-11.1)
[2021-05-23 03:11] LABS: BUN/Creatinine Ratio 15 (6-26); Blood Urea Nitrogen 13 mg/dL (8-23); Calcium 8.8 mg/dL (8.6-10.3); Carbon Dioxide 29 mEq/L (23-29); Chloride 100 mEq/L (98-107); Glucose 103 mg/dL (70-105); Osmolality,Calculated 278 (280-300); Potassium 4.5 mEq/L (3.5-5.1); Sodium 134 mEq/L (136-145); eGFR For African Americans > 60 (> 60); eGFR For Non-African Americans > 60 (> 60)
[2021-05-23] MEDS: Budesonide/Formoterol 160/4.5 1 PUFF INH IH SCH (07:35)
[2021-05-23] MEDS: Tiotropium 10 INH DOSE IH SCH (07:35)
[2021-05-23] MEDS: levETIRAcetam 250 MG TABLET PO SCH (10:00)
[2021-05-23] MEDS: Metoprolol XL (24 HR) Succ 50 MG TAB.ER.24H PO SCH (10:01)
[2021-05-23] MEDS: polyethylene glycoL 3350 17 GM POWD.PACK PO SCH (10:03)
[2021-05-23 16:34] VITALS: BP 99/65
== END 2021-05-23 18:58 | disposition other institution (70) | DRG 329 ==
LOC: EMEROOARM 13:08 → 3ANU 13:08 → SUATTDRO 05-18 15:22
PROVIDERS: ADMIT Internal Medicine; ATTEND Student in an Organized Health Care Education/Training Program

== ENCOUNTER 2022-05-23 19:19 | Inpatient (IN) ==
[2022-05-24] MEDS ORDERED: *HR* OxyCODONE Immed Rel 5 MG TABLET PO PRN (00:47)
[2022-05-24] MEDS ORDERED: Melatonin 3 MG TABLET PO PRN (00:47)
[2022-05-24] MEDS ORDERED: Ondansetron 4 MG/2 ML VIAL IVP PRN (00:47)
[2022-05-24] MEDS ORDERED: *HR* Promethazine 25 MG/ML VIAL IM PRN (00:47)
[2022-05-24] MEDS ORDERED: *HR* HYDROcodone/Acet 5/325 mg TABLET PO PRN (00:47)
[2022-05-24] MEDS ORDERED: Naloxone 0.4 MG/ML INJ IVP PRN (00:47)
[2022-05-24] MEDS ORDERED: Acetaminophen 325 MG TABLET PO PRN (00:47)
[2022-05-24] MEDS ORDERED: *HR* LORazepam 2 MG/ML VIAL IVP PRN ×3 (02:05)
[2022-05-24 02:10] LABS: Basophils % 0.3 %; Hemoglobin 11.8 g/dL (12.9-16.9); Mean Corpuscular HGB Conc 32.2 g/dL (31.6-35.5); Mean Corpuscular Hemoglobin 32.2 pg (28.0-33.3)
[2022-05-24 02:12] LABS: Hematocrit 36.7 % (37.5-50.1); Immature Granulocytes % 1.7 % (0-4); Lymphocytes # 0.3 K/mcL (0.6-4.6); Mean Platelet Volume 11.2 fL (9.4-12.4); Monocytes % 9.8 %; Neutrophils # 8.3 K/mcL (1.6-8.9); Red Blood Count 3.67 M/mcL (4.19-5.50); Red Cell Distribution Width 14.2 % (11.5-14.5); Segmented Neutrophils % 85.2 %; White Blood Count 9.7 K/mcL (4.3-11.1)
[2022-05-24 02:13] LABS: INR 1.3; Prothrombin Time 14.6 Seconds (9.4-12.1)
[2022-05-24 02:14] LABS: Platelet Count 82 K/mcL (140-400)
[2022-05-24] MEDS: Azithromycin 500 MG in 0.9 % Sodium Chloride 250 ML IVPB SCH (02:14)
[2022-05-24 02:21] LABS: Calcium 7.5 mg/dL (8.6-10.3); Chol/HDL Ratio 6.8 (0-4.9); Magnesium 1.6 mg/dL (1.6-2.6); Potassium 3.4 mEq/L (3.5-5.1)
[2022-05-24] MEDS ORDERED: *HR* Heparin 5,000 UNIT/ML VIAL IVP PRN ×2 (02:31)
[2022-05-24] MEDS ORDERED: *HR* Heparin 5,000 UNIT/ML VIAL IVP ONE (02:31)
[2022-05-24] MEDS ORDERED: Perflutren Lipid Microsphere 1.3 ML in 0.9 % Sodium Chloride 8.7 ML IVP PRN ×2 (02:32→06:26)
[2022-05-24 02:48] LABS: Platelet Estimate Decreased (Normal)
[2022-05-24] MEDS ORDERED: Saliva Stimulant 44.3ml BOTTLE PO PRN (02:51)
[2022-05-24] MEDS: Heparin 25,000UNIT/250ML 1/2NS 25,000 UNIT/250 ML IV.SOLN IVC SCH (03:13)
[2022-05-24] MEDS: 0.9 % Sodium Chloride 1,000 ML IVC SCH ×2 (03:17→21:05)
[2022-05-24] MEDS: Thiamine (B-1) 100 MG, Folic Acid 1 MG, MVI, adult with vitamin K 10 ML in 0.9 % Sodi... IVPB SCH (03:46)
[2022-05-24] MEDS: Ipratropium/Albuterol Neb 3 ML IH SCH ×5 (04:09→20:27)
[2022-05-24] MEDS: MethylPREDNISolone 40 MG/ML VIAL IVP SCH ×2 (05:25→17:23)
[2022-05-24] MEDS: Aspirin 81 MG TAB.CHEW PO SCH ×2 (08:35→08:52)
[2022-05-24] MEDS: cefTRIAXone 1,000 MG in 0.9 % Sodium Chloride 10 ML IVP SCH (08:36)
[2022-05-24] MEDS ORDERED: DAPTOmycin 550 MG in 0.9 % Sodium Chloride 100 ML IVPB SCH (09:00)
[2022-05-24] MEDS: Budesonide/Formoterol 160/4.5 1 PUFF INH IH SCH (20:26)
[2022-05-24] MEDS ORDERED: DOXEPIN HCL 150 MG PO SCH (21:00)
[2022-05-25] MEDS ORDERED: Vancomycin 1,250 MG/262.5 ML IV.SOLN IVPB ONE (00:03)
[2022-05-25] MEDS: Ipratropium/Albuterol Neb 3 ML IH SCH ×7 (00:04→23:20)
[2022-05-25 02:03] LABS: Basophils % 0.1 %; Immature Granulocytes % 0.7 % (0-4)
[2022-05-25 02:05] LABS: Hematocrit 36.3 % (37.5-50.1); Hemoglobin 11.5 g/dL (12.9-16.9); Immature Platelets 10.2 % (1.1-6.1); Lymphocytes # 0.5 K/mcL (0.6-4.6); Lymphocytes % 4.7 %; Mean Corpuscular HGB Conc 31.7 g/dL (31.6-35.5); Mean Corpuscular Hemoglobin 32.9 pg (28.0-33.3); Mean Corpuscular Volume 103.7 fL (83.0-100.0); Mean Platelet Volume 12.1 fL (9.4-12.4); Monocytes % 9.9 %; Neutrophils # 8.2 K/mcL (1.6-8.9); Red Cell Distribution Width 14.4 % (11.5-14.5); Segmented Neutrophils % 84.6 %; White Blood Count 9.7 K/mcL (4.3-11.1)
[2022-05-25 02:06] LABS: Platelet Count 78 K/mcL (140-400)
[2022-05-25 02:22] LABS: Calcium 7.6 mg/dL (8.6-10.3); Phosphorous 3.4 mg/dL (2.7-4.5); Potassium 3.6 mEq/L (3.5-5.1)
[2022-05-25] MEDS: Azithromycin 500 MG in 0.9 % Sodium Chloride 250 ML IVPB SCH (03:04)
[2022-05-25] MEDS: Heparin 25,000UNIT/250ML 1/2NS 25,000 UNIT/250 ML IV.SOLN IVC SCH (04:50)
[2022-05-25] MEDS: MethylPREDNISolone 40 MG/ML VIAL IVP SCH ×2 (04:50→17:51)
[2022-05-25] MEDS: Budesonide/Formoterol 160/4.5 1 PUFF INH IH SCH ×2 (07:55→20:15)
[2022-05-25 08:07] LABS: Creatinine,Urine 95 mg/dL; Protein/Creatinine Ratio,Urine 0.78 mg/mg (0.00-0.20); Sodium, Urine < 10.0 mEq/L
[2022-05-25] MEDS: Aspirin 81 MG TAB.CHEW PO SCH (08:37)
[2022-05-25] MEDS: levETIRAcetam 250 MG TABLET PO SCH (08:37)
[2022-05-25] MEDS: cefTRIAXone 1,000 MG in 0.9 % Sodium Chloride 10 ML IVP SCH (08:37)
[2022-05-25] MEDS ORDERED: *HR* FentaNYL (PF) 100 MCG/2 ML VIAL IVP PRN (14:41)
[2022-05-25] MEDS ORDERED: Lidocaine Viscous Oral Soln 15 ML SOLUTION MM PRN (14:41)
[2022-05-25] MEDS ORDERED: 0.9 % Sodium Chloride 500 ML IVC ONE (14:41)
[2022-05-25] MEDS ORDERED: *HR* Midazolam HCl 5 MG/5 ML VIAL IVP PRN (14:41)
[2022-05-25] MEDS: Thiamine (B-1) 100 MG, Folic Acid 1 MG, MVI, adult with vitamin K 10 ML in 0.9 % Sodi... IVPB SCH (17:52)
[2022-05-26] MEDS: Azithromycin 500 MG in 0.9 % Sodium Chloride 250 ML IVPB SCH (02:34)
[2022-05-26] MEDS ORDERED: Vancomycin 1,250 MG/262.5 ML IV.SOLN IVPB SCH (03:00)
[2022-05-26] MEDS: Ipratropium/Albuterol Neb 3 ML IH SCH ×5 (04:09→20:21)
[2022-05-26 04:45] LABS: Hemoglobin 10.9 g/dL (12.9-16.9); Monocytes % 4.9 %
[2022-05-26 04:48] LABS: Basophils % 0.1 %; Hematocrit 35.2 % (37.5-50.1); Immature Platelets 8.8 % (1.1-6.1); Lymphocytes # 0.4 K/mcL (0.6-4.6); Lymphocytes % 4.4 %; Mean Corpuscular Hemoglobin 32.3 pg (28.0-33.3); Mean Corpuscular Volume 104.5 fL (83.0-100.0); Mean Platelet Volume 11.5 fL (9.4-12.4); Monocytes # 0.4 K/mcL (0.0-1.3); Neutrophils # 7.9 K/mcL (1.6-8.9); Red Blood Count 3.37 M/mcL (4.19-5.50); Red Cell Distribution Width 14.5 % (11.5-14.5); Segmented Neutrophils % 89.6 %; White Blood Count 8.8 K/mcL (4.3-11.1)
[2022-05-26 04:52] LABS: Platelet Count 79 K/mcL (140-400)
[2022-05-26 04:56] LABS: BUN/Creatinine Ratio 34 (6-26); Blood Urea Nitrogen 44 mg/dL (8-23); Calcium 8.1 mg/dL (8.6-10.3); Carbon Dioxide 25 mEq/L (23-29); Chloride 105 mEq/L (98-107); Glucose 190 mg/dL (70-105); Magnesium 2.1 mg/dL (1.6-2.6); Osmolality,Calculated 302 (280-300); Phosphorous 2.5 mg/dL (2.7-4.5); Potassium 3.9 mEq/L (3.5-5.1); Sodium 138 mEq/L (136-145); eGFR For African Americans > 60 (> 60); eGFR For Non-African Americans 57 (> 60)
[2022-05-26] MEDS: MethylPREDNISolone 40 MG/ML VIAL IVP SCH (05:14)
[2022-05-26] MEDS: Budesonide/Formoterol 160/4.5 1 PUFF INH IH SCH ×2 (07:44→20:21)
[2022-05-26] MEDS: levETIRAcetam 250 MG TABLET PO SCH (09:15)
[2022-05-26] MEDS: Aspirin 81 MG TAB.CHEW PO SCH (09:15)
[2022-05-26] MEDS: cefTRIAXone 1,000 MG in 0.9 % Sodium Chloride 10 ML IVP SCH (09:41)
[2022-05-26 11:29] VITALS: BP 135/90; PULSE 76; TEMP 98
[2022-05-26] MEDS ORDERED: Furosemide 40 MG TABLET PO PRN (12:48)
[2022-05-26 14:58] VITALS: O2SAT 95
[2022-05-26] MEDS: Thiamine (B-1) 100 MG, Folic Acid 1 MG, MVI, adult with vitamin K 10 ML in 0.9 % Sodi... IVPB SCH (17:49)
[2022-05-27] MEDS: Ipratropium/Albuterol Neb 3 ML IH SCH ×2 (00:11→04:14)
[2022-05-27] MEDS ORDERED: Vancomycin 1,250 MG/262.5 ML IV.SOLN IVPB SCH (05:00)
[2022-05-27] MEDS ORDERED: *HR* Enoxaparin 40 MG/0.4 ML SYRINGE SQ SCH (06:00)
[2022-05-27] MEDS ORDERED: predniSONE 20 MG TABLET PO SCH (09:00)
[2022-05-27] MEDS ORDERED: Metoprolol XL (24 HR) Succ 50 MG TAB.ER.24H PO SCH (09:00)
== END 2022-05-26 21:00 | disposition left against medical advice (07) | DRG 871 ==
LOC: 3NENU → SUATTDRO 23:27
PROVIDERS: ADMIT Internal Medicine; ATTEND Internal Medicine

== ENCOUNTER 2022-05-28 15:11 | Inpatient (IN) ==
[2022-05-28 16:34] LABS: BUN/Creatinine Ratio 24 (6-26); Blood Urea Nitrogen 23 mg/dL (8-23); Calcium 8.6 mg/dL (8.6-10.3); Carbon Dioxide 35 mEq/L (23-29); Chloride 98 mEq/L (98-107); Glucose 165 mg/dL (70-105); Osmolality,Calculated 295 (280-300); Potassium 3.5 mEq/L (3.5-5.1); Sodium 139 mEq/L (136-145); eGFR For African Americans > 60 (> 60); eGFR For Non-African Americans > 60 (> 60)
[2022-05-28 17:13] LABS: Basophils % 0.1 %; Eosinophils # 0.1 K/mcL (0.0-0.6); Eosinophils % 1.2 %; Hematocrit 33.3 % (37.5-50.1); Hemoglobin 10.6 g/dL (12.9-16.9); Immature Granulocytes % 1.3 % (0-4); Lymphocytes # 0.8 K/mcL (0.6-4.6); Lymphocytes % 7.5 %; Mean Corpuscular HGB Conc 31.8 g/dL (31.6-35.5); Mean Corpuscular Volume 100.6 fL (83.0-100.0); Mean Platelet Volume 10.4 fL (9.4-12.4); Monocytes # 1.1 K/mcL (0.0-1.3); Monocytes % 9.9 %; Neutrophils # 8.7 K/mcL (1.6-8.9); Platelet Count 99 K/mcL (140-400); Red Blood Count 3.31 M/mcL (4.19-5.50); Red Cell Distribution Width 13.8 % (11.5-14.5); White Blood Count 10.9 K/mcL (4.3-11.1)
[2022-05-28 18:00] LABS: Alanine Aminotransferase 18 Units/L (7-52); Albumin/Globulin Ratio 0.9 (1.1-2.2); Alkaline Phosphatase 63 Units/L (34-104); Aspartate Amino Transferase 14 Units/L (13-39); Bilirubin,Direct 0.1 mg/dL (0.0-0.2); Bilirubin,Indirect 0.5 mg/dL (0.0-1.0); Bilirubin,Total 0.6 mg/dL (0.3-1.0); Globulin 3.2 g/dL (2.4-3.5); Total Protein 6.2 g/dL (6.4-8.9)
[2022-05-28 22:09] LABS: Influenza A PCR Negative (Negative); Influenza B PCR Negative (Negative); Resp. Syncytial Virus PCR Negative (Negative)
[2022-05-28 22:34] LABS: SARS-CoV-2 by PCR (In House) Negative (Negative)
[2022-05-28] MEDS ORDERED: Albuterol 2.5 MG/3 ML NEBULIZER IH ONE (23:32)
[2022-05-29] MEDS: Budesonide/Formoterol 160/4.5 1 PUFF INH IH SCH ×3 (00:38→20:12)
[2022-05-29] MEDS ORDERED: Metoprolol XL (24 HR) Succ 50 MG TAB.ER.24H PO SCH (01:19)
[2022-05-29] MEDS ORDERED: Naloxone 0.4 MG/ML INJ IVP PRN (07:48)
[2022-05-29] MEDS ORDERED: Vancomycin 0 MG in 0.9 % Sodium Chloride 250 ML IVPB SCH (08:00)
[2022-05-29] MEDS ORDERED: Acetaminophen 325 MG TABLET PO PRN (09:18)
[2022-05-29] MEDS ORDERED: *HR* HYDROcodone/Acet 5/325 mg TABLET PO PRN (09:18)
[2022-05-29] MEDS: lisinopriL 20 MG TABLET PO SCH (09:49)
[2022-05-29] MEDS: levETIRAcetam 250 MG TABLET PO SCH ×2 (09:49→23:16)
[2022-05-29] MEDS: Multivit/Ca/Min/Fe/FA 1 TAB TABLET PO SCH (09:50)
[2022-05-29] MEDS: 0.9 % Sodium Chloride 1,000 ML IVC SCH ×2 (09:50→23:17)
[2022-05-29 10:29] LABS: Basophils % 0.2 %; Mean Platelet Volume 11.1 fL (9.4-12.4); Monocytes % 7.1 %
[2022-05-29 10:31] LABS: Eosinophils # 0.2 K/mcL (0.0-0.6); Eosinophils % 1.5 %; Hematocrit 32.8 % (37.5-50.1); Hemoglobin 10.4 g/dL (12.9-16.9); Immature Granulocytes % 1.4 % (0-4); Immature Platelets 6.8 % (1.1-6.1); Lymphocytes # 0.9 K/mcL (0.6-4.6); Lymphocytes % 7.7 %; Mean Corpuscular HGB Conc 31.7 g/dL (31.6-35.5); Mean Corpuscular Hemoglobin 32.6 pg (28.0-33.3); Mean Corpuscular Volume 102.8 fL (83.0-100.0); Monocytes # 0.8 K/mcL (0.0-1.3); Neutrophils # 9.4 K/mcL (1.6-8.9); Platelet Count 121 K/mcL (140-400); Red Blood Count 3.19 M/mcL (4.19-5.50); Red Cell Distribution Width 13.8 % (11.5-14.5); Segmented Neutrophils % 82.1 %; White Blood Count 11.4 K/mcL (4.3-11.1)
[2022-05-29 10:47] LABS: Blood Urea Nitrogen 19 mg/dL (8-23); Calcium 8.1 mg/dL (8.6-10.3); Carbon Dioxide 36 mEq/L (23-29); Chloride 101 mEq/L (98-107); Glucose 127 mg/dL (70-105); Osmolality,Calculated 292 (280-300); Potassium 3.6 mEq/L (3.5-5.1); Sodium 139 mEq/L (136-145)
[2022-05-29 11:57] LABS: BUN/Creatinine Ratio 21 (6-26); eGFR For African Americans > 60 (> 60); eGFR For Non-African Americans > 60 (> 60)
[2022-05-29] MEDS: Ondansetron 4 MG/2 ML VIAL IVP PRN ×2 (13:50→23:38)
[2022-05-29] MEDS: *HR* OxyCODONE Immed Rel 5 MG TABLET PO PRN (13:50)
[2022-05-29 16:41] LABS: A.calcoaceticus-baumannii cplx Not Detected (Not Detect); Bacteroides fragilis by PCR Not Detected (Not Detect); Candida albicans by PCR Not Detected (Not Detect); Candida auris by PCR Not Detected (Not Detect); Candida glabrata by PCR Not Detected (Not Detect); Candida krusei by PCR Not Detected (Not Detect); Candida parapsilosis by PCR Not Detected (Not Detect); Candida tropicalis by PCR Not Detected (Not Detect); Crypto. neoformans/gattii PCR Not Detected (Not Detect); Enterobacter cloacae Cmplx PCR Not Detected (Not Detect); Enterobacterales by PCR Not Detected (Not Detect); Enterococcus faecalis by PCR Not Detected (Not Detect); Enterococcus faecium by PCR Not Detected (Not Detect); Escherichia coli by PCR Not Detected (Not Detect); Klebs. pneumoniae group by PCR Not Detected (Not Detect); Klebsiella aerogenes by PCR Not Detected (Not Detect); Klebsiella oxytoca by PCR Not Detected (Not Detect); Proteus by PCR Not Detected (Not Detect); Pseudomonas aeruginosa by PCR Not Detected (Not Detect); Salmonella species by PCR Not Detected (Not Detect); Serratia marcescens by PCR Not Detected (Not Detect); Staph epidermidis by PCR DETECTED (Not Detect); Staph lugdunensis by PCR Not Detected (Not Detect); Staphylococcus by PCR Not Detected (Not Detect); Stenotrophomonas maltophilia Not Detected (Not Detect); Streptococcus agalactiae(B)PCR Not Detected (Not Detect); Streptococcus by PCR Not Detected (Not Detect); Streptococcus pneumoniae PCR Not Detected (Not Detect); Streptococcus pyogenes (A) PCR Not Detected (Not Detect); mecA/C Methicillin-Resist Gene DETECTED (Not Detect)
[2022-05-29] MEDS ORDERED: *HR* Promethazine 25 MG/ML VIAL IM PRN (16:49)
[2022-05-29] MEDS ORDERED: *HR* LORazepam 2 MG/ML VIAL IVP PRN (16:49)
[2022-05-29] MEDS: *HR* LORazepam 2 MG/ML VIAL IVP PRN (17:13)
[2022-05-30] MEDS: *HR* LORazepam 2 MG/ML VIAL IVP PRN (00:22)
[2022-05-30] MEDS: Budesonide/Formoterol 160/4.5 1 PUFF INH IH SCH ×2 (08:09→19:46)
[2022-05-30] MEDS: Multivit/Ca/Min/Fe/FA 1 TAB TABLET PO SCH (09:53)
[2022-05-30] MEDS: Metoprolol XL (24 HR) Succ 50 MG TAB.ER.24H PO SCH (09:53)
[2022-05-30] MEDS: lisinopriL 20 MG TABLET PO SCH (09:54)
[2022-05-30] MEDS: levETIRAcetam 250 MG TABLET PO SCH ×2 (09:54→20:26)
[2022-05-30] MEDS: 0.9 % Sodium Chloride 1,000 ML IVC SCH (18:00)
[2022-05-30] MEDS: *HR* OxyCODONE Immed Rel 5 MG TABLET PO PRN (20:48)
[2022-05-31] MEDS: Budesonide/Formoterol 160/4.5 1 PUFF INH IH SCH ×2 (07:50→20:12)
[2022-05-31] MEDS: levETIRAcetam 250 MG TABLET PO SCH ×2 (09:19→21:15)
[2022-05-31] MEDS: Multivit/Ca/Min/Fe/FA 1 TAB TABLET PO SCH (09:19)
[2022-05-31] MEDS: lisinopriL 20 MG TABLET PO SCH (09:20)
[2022-05-31] MEDS: Metoprolol XL (24 HR) Succ 50 MG TAB.ER.24H PO SCH (09:20)
[2022-05-31] MEDS: 0.9 % Sodium Chloride 1,000 ML IVC SCH ×2 (09:30→19:50)
[2022-05-31 09:51] LABS: Hematocrit 30.4 % (37.5-50.1); Hemoglobin 9.1 g/dL (12.9-16.9); Mean Corpuscular HGB Conc 29.9 g/dL (31.6-35.5); Mean Corpuscular Hemoglobin 31.7 pg (28.0-33.3); Mean Corpuscular Volume 105.9 fL (83.0-100.0); Mean Platelet Volume 10.7 fL (9.4-12.4); Platelet Count 188 K/mcL (140-400); Red Blood Count 2.87 M/mcL (4.19-5.50); White Blood Count 13.6 K/mcL (4.3-11.1)
[2022-05-31] MEDS: Ondansetron 4 MG/2 ML VIAL IVP PRN (09:52)
[2022-05-31 10:14] LABS: Calcium 8.1 mg/dL (8.6-10.3); Potassium 4.2 mEq/L (3.5-5.1)
[2022-05-31] MEDS: ALPRAZolam 1 MG TABLET PO PRN (18:31)
[2022-05-31] MEDS: *HR* OxyCODONE Immed Rel 5 MG TABLET PO PRN (21:15)
[2022-06-01] MEDS ORDERED: Levalbuterol Neb 1.25 MG/3 ML IH PRN (00:20)
[2022-06-01 06:59] LABS: Hematocrit 26.9 % (37.5-50.1); Hemoglobin 8.1 g/dL (12.9-16.9); Mean Corpuscular HGB Conc 30.1 g/dL (31.6-35.5); Mean Corpuscular Hemoglobin 32.1 pg (28.0-33.3); Mean Corpuscular Volume 106.7 fL (83.0-100.0); Mean Platelet Volume 10.5 fL (9.4-12.4); Platelet Count 199 K/mcL (140-400); Red Blood Count 2.52 M/mcL (4.19-5.50); Red Cell Distribution Width 14.1 % (11.5-14.5); White Blood Count 9.1 K/mcL (4.3-11.1)
[2022-06-01 07:25] LABS: Calcium 6.7 mg/dL (8.6-10.3); Potassium 4.2 mEq/L (3.5-5.1)
[2022-06-01] MEDS: Budesonide/Formoterol 160/4.5 1 PUFF INH IH SCH ×2 (08:04→20:09)
[2022-06-01] MEDS: *HR* LORazepam 2 MG/ML VIAL IVP PRN ×4 (08:07→20:46)
[2022-06-01] MEDS: *HR* OxyCODONE Immed Rel 5 MG TABLET PO PRN (08:07)
[2022-06-01] MEDS: Multivit/Ca/Min/Fe/FA 1 TAB TABLET PO SCH (09:26)
[2022-06-01] MEDS: Metoprolol XL (24 HR) Succ 50 MG TAB.ER.24H PO SCH (09:26)
[2022-06-01] MEDS: levETIRAcetam 1,000 MG in 0.9 % Sodium Chloride 100 ML IVPB SCH ×2 (10:32→20:45)
[2022-06-01] MEDS: ALPRAZolam 1 MG TABLET PO PRN (17:45)
[2022-06-01] MEDS: levETIRAcetam 250 MG TABLET PO SCH (20:03)
[2022-06-02 01:52] LABS: Hematocrit 28.7 % (37.5-50.1); Hemoglobin 8.6 g/dL (12.9-16.9); Mean Corpuscular Hemoglobin 32.3 pg (28.0-33.3); Mean Corpuscular Volume 107.9 fL (83.0-100.0); Mean Platelet Volume 9.8 fL (9.4-12.4); Platelet Count 196 K/mcL (140-400); Red Blood Count 2.66 M/mcL (4.19-5.50)
[2022-06-02] MEDS: *HR* LORazepam 2 MG/ML VIAL IVP PRN ×2 (01:55→07:14)
[2022-06-02 02:06] LABS: Potassium 4.8 mEq/L (3.5-5.1)
[2022-06-02 03:55] VITALS: BP 102/68; PULSE 99; TEMP 98.3
[2022-06-02] MEDS ORDERED: D5% in Water 1,000 ML IVC PRN (04:54)
[2022-06-02] MEDS ORDERED: *HR* Dextrose 50 % in Water (Syg) 50 ML SYRINGE IVP PRN (04:54)
[2022-06-02] MEDS ORDERED: Dextrose Gel 15 GM/37.5 ML TUBE PO PRN ×2 (04:54)
[2022-06-02] MEDS ORDERED: *HR* LORazepam 2 MG/ML VIAL IVP ONE (04:55)
[2022-06-02] MEDS: Budesonide/Formoterol 160/4.5 1 PUFF INH IH SCH (07:45)
[2022-06-02 07:59] VITALS: O2SAT 95
== END 2022-06-02 09:39 | disposition short-term general hospital (02) | DRG 280 ==
LOC: EMEROOARM 15:11 → 3ANU 15:11 → SUATTDRO 05-29 07:48 → 3ANU 05-29 08:51 → UNDODISIN 05-29 20:55
PROVIDERS: ADMIT Internal Medicine; ATTEND Internal Medicine